=== PATIENT | female | born 1965 | race Caucasian/White ===

== ENCOUNTER 2017-08-19 18:11 | Emergency (ER) | payer OTHER ==
[2017-08-19 18:23] VITALS: BP 155/85
--- NOTE | 2017-08-19 19:05 | UC ---
Vladimir Winters Jennifer, scribed for Rashid Fragoso MD on 08/19/17 at 1838 . Abdominal Pain Female HPI - HPI Summary HPI Summary: The pt is a 51 y/o female who complains of diffuse abdominal pain that began at 12:30 this morning that has worsened throughout the day. She described the pain is located below the umbilicus and feels like contractions and when she had a ruptured hernia. Pt reports when she doesnt move, the pain is rated a 6/10, but movement worsens the pain to a 10/10. She also reports that since she had her hernia surgeries, shes had an outie belly button, but today its an innie. Pt additionally complains of no appetite, dry mouth, bloating, no pooping since her abdominal pain began, and that her rib cage to her hip bone feels sore. Pt denies nausea, vomiting, passing gas more than normal, and dysuria. - History of Current Complaint Chief Complaint: UCGI Stated Complaint: abdominal pain Time Seen by Provider: 08/19/17 18:29 Hx Obtained From: Patient Hx Last Menstrual Period: feb 12 Onset/Duration: Sudden Onset, Lasting Hours - about 6 hours ago, Still Present, Worse Since - throughout the day has worsened Timing: Constant Severity Initially: Moderate Severity Currently: Moderate Pain Intensity: 6 Pain Scale Used: 0-10 Numeric Location: Diffuse Radiates: Yes Radiates to: Other - Rip cage to hip bone feels sore Character: Other - "feels like contractions" Aggravating Factor(s): Movement Alleviating Factor(s): Nothing Associated Signs and Symptoms: Positive: Other: - diffuse abdominal pain, rib cage to hip bone feels sore, no appetite, dry mouth, hasn't pooped since pain started, feeling bloated. NEG: nausea, vomiting, no abnormal amount of gas passed, dysuria. Allergies/Adverse Reactions: Allergies Allergy/AdvReac Type Severity Reaction Status Date / Time Penicillins Allergy Hives Verified 08/19/17 18:16 Codones Allergy Severe Hives Uncoded 10/02/16 09:18 Home Medications: Home Medications Amphetamine MIXED SALT TAB* [Adderall TAB*] 10 mg PO DAILY 08/19/17 [History Confirmed 08/19/17] PMH/Surg Hx/FS Hx/Imm Hx Previously Healthy: Yes - NEG: HTN, DM GI/ History: Other Other GI/ History: Hernia - Surgical History Surgical History: Yes Surgery Procedure, Year, and Place: HERNIA REPAIR. APPENDIX. GALLBLADDER. LUMPECTOMY RIGHT BREAST. EAR TUBES/TONSILS. COLPOSCOPY - Family History Known Family History: Positive: Hypertension - Mother, grandfather - Social History Alcohol Use: None Substance Use Type: None Smoking Status (MU): Heavy Every Day Tobacco Smoker Type: Cigarettes Amount Used/How Often: 1 PPD Have You Smoked in the Last Year: Yes - Immunization History Most Recent Influenza Vaccination: 2014 Most Recent Tetanus Shot: unknown Most Recent Pneumonia Vaccination: never Review of Systems Constitutional: Other - No appetite ENT: Other - Dry mouth Gastrointestinal: Negative - Nausea, vomiting, passing gas more than normal, Abdominal Pain, Other - Bloating, no pooping since abdominal pain began Genitourinary: Negative - Dysuria Musculoskeletal: Other: - "rib cage to hip bone feels sore" Is Patient Immunocompromised?: No All Other Systems Reviewed And Are Negative: Yes Physical Exam - Summary Physical Exam Summary: General: well-appearing, no pain distress Skin: warm, color reflects adequate perfusion, dry Head: normal Eyes: EOMI, SAMI ENT: normal Neck: supple, nontender Respiratory: CTA, breath sounds present Cardiovascular: RRR Abdomen: soft, nontender Bowel: present Musculoskeletal: normal, strength/ROM intact Neurological: normal, sensory/motor intact, A&O x3 Psychological: affect/mood appropriate Triage Information Reviewed: Yes Vital Signs: Initial Vital Signs Temp 97.4 F 08/19/17 18:16 Pulse 76 08/19/17 18:16 Resp 16 08/19/17 18:16 BP 155/85 08/19/17 18:16 Pulse Ox 100 08/19/17 18:16 Vital Signs Reviewed: Yes Abd Pain Female Course/Dx - Course Course Of Treatment: Medications reviewed. Allergies noted. BP noted and advised to follow up with PCP. C/O BOWEL OBSTRUCTION. NEED TIMELY LABS AND CT WITH PO AND IV CONTRAST WHICH CANNOT BE DONE HERE IN CLINIC. THIS AND THE NEED FOR ED EVAL WAS DISCUSSED WITH THE PATIENT. SHE DECLINED AMBULANCE TRANSPORT TO ED. WILL GO BY POV. PATIENT DISCUSSED WITH NURSING IN THE ED. - Differential Dx/Diagnosis Provider Diagnoses: ABDOMINAL PAIN. elevated BP without dx of HTN Discharge - Discharge Plan Condition: Stable Disposition: HOME Patient Education Materials: Acute Abdominal Pain (ED) Referrals: Brice Limon MD [Primary Care Provider] - Additional Instructions: Your blood pressure was elevated during todays visit; please follow up with your primary care provider within a week for further evaluation. The documentation as recorded by the [facility] Jennifer accurately reflects the service I personally performed and the decisions made by me, Rashid Fragoso MD.
== END 2017-08-19 18:47 | disposition home or self-care (01) ==
LOC: UCEAST 18:11
DX: R10.84 Generalized abdominal pain (principal); R03.0 Elevated blood-pressure reading, without diagnosis of hypertension; Z90.49 Acquired absence of other specified parts of digestive tract; Z88.0 Allergy status to penicillin; Z88.8 Allergy status to other drugs, medicaments and biological substances; F17.210 Nicotine dependence, cigarettes, uncomplicated
CPT/HCPCS: 99212; G0463

== ENCOUNTER 2017-08-19 19:23 | Emergency (ER) | payer OTHER ==
[2017-08-19] MEDS ORDERED: NS 0.9% 1000 ML* 1,000 ML IV ONE (19:58)
[2017-08-19 20:26] LABS: Urine Appearance Clear; Urine Blood Negative (Negative); Urine Color Yellow; Urine Ketones Trace (Negative); Urine Protein Negative (Negative); Urine Specific Gravity 1.021 (1.010-1.030); Urine Urobilinogen Negative (Negative)
[2017-08-19 20:37] LABS: Hematocrit 42 % (35-47); Hemoglobin 14.3 g/dl (12.0-16.0); Mean Corpuscular HGB Conc 34 g/dl (31-36); Mean Corpuscular Hemoglobin 31 pg (27-31); Mean Corpuscular Volume 93 fL (80-97); Mean Platelet Volume 8 um3 (7.4-10.4); Platelet Count 406 10^3/ul (150-450); Red Blood Count 4.58 10^6/ul (4.0-5.4); Red Cell Distribution Width 15 % (10.5-15); White Blood Count 10.7 10^3/ul (3.5-10.8)
[2017-08-19 20:55] LABS: EGFR Non-African American 107.9 (>60)
[2017-08-19 21:05] LABS: ABS Basophils 0.1 10^3/ul (0-0.2); ABS Eosinophils 0.1 10^3/ul (0-0.6); ABS Lymphocytes 5.9 10^3/ul (1.0-4.8); ABS Monocytes 0.8 10^3/ul (0-0.8); ABS Neutrophils 3.9 10^3/ul (1.5-7.7)
[2017-08-19 21:07] LABS: Monocytes % 5 % (0-7)
[2017-08-19] MEDS ORDERED: Morphine INJ* 4 MG/ML 1 ML SYRINGE (NEW SYRINGE VERSION) IV ONE (21:47)
[2017-08-20] MEDS ORDERED: Iohexol 300* (CONTRAST) 10 ML SDV IV ONE (00:01)
[2017-08-20] MEDS ORDERED: Morphine INJ* 4 MG/ML 1 ML SYRINGE (NEW SYRINGE VERSION) IV ONE (01:07)
[2017-08-20] MEDS ORDERED: Bisacodyl SUPP* 10 MG SUPP PR ONE (03:09)
[2017-08-20] MEDS ORDERED: Magnesium CITRATE* 300 ML BTL PO ONE (03:09)
[2017-08-20 03:46] VITALS: BP 113/73
--- NOTE | 2017-08-20 04:41 | ED ---
Loli Winters Nilda, scribed for Case Vanegas MD on 08/19/17 at 2218 . Progress - Progress Note Progress Note: This pt was s/o by Dr. Jacques, pending dispo, awaiting CT Abd/Pel. CT Abd/Pel, per radiologist, reveals: 1 cm indeterminate hypodensity posterior mid/upper left kidney and 1.5 cm indeterminate hypodensity lower pole right kidney, correlate with ultrasound. Additional small cystic foci bilateral kidneys and small nonobstructing stone on right. 3.2 cm and 3.0 cm left adrenal nodules and 1.7 cm and 1.3 cm right adrenal nodules, indeterminate. These could be further evaluated with adrenal protocol CT. Small segment of tansverse colon projecting into 6.9 cm umbilical hernia, which also contains small free fluid, advise follow up. Moderate feces in right colon to level of hernia, and moderate air and minimal feces in left colon. Colon diameter remains normal caliber. No bowel obstruction, colitis, free fluid or free air. Appendix not seen. Pericecal surgical changes. Unremarkable pancreas. Cholecystectomy. Steatosis liver. Small epigastric ventral hernia containing fat. Dr. Vanegas has reviewed this report. [0302] Pt was evaluated by surgeon Dr. Limon who was able to reduce umbilical hernia. Pt felt better. Dr. Limon recommended D/C pt home and advising her to call office for appointment with him tomorrow. Pt will be D/C with Dx of umbilical hernia and constipation. Re-Evaluation - Re-Evaluation First Eval Re-Evaluation Time: 01:53 Comment: Reviewed CT with pt. Second Eval Re-Evaluation Time: 03:36 Comment: Pt feels better. Reviewed D/C plan. Course/Dx - Course Course Of Treatment: This pt was s/o by Dr. Jacques, pending dispo, awaiting CT Abd/Pel. CT Abd/Pel, per radiologist, reveals: 1 cm indeterminate hypodensity posterior mid/upper left kidney and 1.5 cm indeterminate hypodensity lower pole right kidney, correlate with ultrasound. Additional small cystic foci bilateral kidneys and small nonobstructing stone on right. 3.2 cm and 3.0 cm left adrenal nodules and 1.7 cm and 1.3 cm right adrenal nodules, indeterminate. These could be further evaluated with adrenal protocol CT. Small segment of tansverse colon projecting into 6.9 cm umbilical hernia, which also contains small free fluid, advise follow up. Moderate feces in right colon to level of hernia, and moderate air and minimal feces in left colon. Colon diameter remains normal caliber. No bowel obstruction, colitis, free fluid or free air. Appendix not seen. Pericecal surgical changes. Unremarkable pancreas. Cholecystectomy. Steatosis liver. Small epigastric ventral hernia containing fat. Dr. Vanegas has reviewed this report. [0302] Pt was evaluated by surgeon Dr. Limon who was able to reduce umbilical hernia. Pt felt better. Dr. Limon recommended D/C pt home and advising her to call office for appointment with him tomorrow. Pt will be D/C with Dx of umbilical hernia and constipation. - Diagnoses Provider Diagnoses: Umbilical hernia, Constipation - Provider Notifications Discussed Care Of Patient With: Avinash Limon - Surgery Time Discussed With Above Provider: 02:00 Instructed by Provider To: Other - agrees to look at pt's CT and will call back to discuss findings. The documentation as recorded by the [facility] Nilda accurately reflects the service I personally performed and the decisions made by , Case Vanegas MD.
--- NOTE | 2017-08-20 05:39 | CONS ---
CC: Dr. Avinash Limon; Dr. Limon CONSULTATION REPORT: DATE OF CONSULT: 08/20/17 CHIEF COMPLAINT: Abdominal pain. HISTORY OF PRESENT ILLNESS: The patient is a 51-year-old female, who comes in with approximately 8 h ours of abdominal pain. She has not been having any nausea, no vomiting, no fever, no chills, no tan rrhea, or change in urine or stool, no blood with urine or stool, no accident, injury or trauma. She has a history of a repair of incarcerated umbilical hernia done in 2016. Few weeks later, she did h ave an acute appendicitis that required going back through the umbilicus. She has also had a laparos copic cholecystectomy in the remote past. PHYSICAL EXAM: Vital signs at this time, temp 99, blood pressure 148/99, pulse 96 and regular, respi rations 17 and unlabored, O2 saturations 98%. She is 5 feet 9 inches, 230 pounds, BMI of 34. She do es not appear acutely ill. She appears uncomfortable. Skin is warm and well perfused. She is not d iaphoretic. Breathing is easy and unlabored. Heart is regular. Abdomen is obese and soft and mild diffuse tenderness. There is increased tenderness in the periumbilical region. There is a palpable u mbilical hernia. With pressure, I am ultimately able to get this reduced and I can get my finger pilo n into the fascial defect, which feels like it is maybe 2 cm across, there by confirming that the her harvey is reduced. I did reevaluate her after about 20 minutes and her abdominal pain was substantially improved and the hernia remained reduced. DIAGNOSTIC STUDIES/LAB DATA: Laboratory studies on this admission, normal white blood count, no left shift. Chemistries are normal. Urine normal. CT scan shows umbilical hernia with bowel contents. IMPRESSION: A 51-year-old female, who presented with an incarcerated umbilical hernia that has now b een reduced. I have discussed this with her in detail and she understands the need to have this repa ired in the near future and she does not require emergent repair. [facility] and will need to follow up in our office in the next couple of days and we will arrange s buster- urgent repair for recurrent umbilical hernia. She does understand that we will probably need to use mesh in this case. [id number]/[facility] #: [id number]
--- NOTE | 2017-08-20 07:59 | RAD ---
CLINICAL HISTORY: Lower abdominal pain. Relevant surgical history includes hernia repair, appendectomy and cholecystectomy. COMPARISON: Most recent comparison CT examination is dated January 06, 2016 and MRI of the abdomen October 07, 2016 TECHNIQUE: Contrast enhanced CT examination of the abdomen and pelvis from the lung bases through the initial tuberosities. The patient received 139 mL Omnipaque 300 intravenously prior to imaging.The patient received oral contrast as well prior to imaging. FINDINGS: VISUALIZED LUNG BASES: The visualized lung bases are grossly clear. There is no pleural effusion. ABDOMEN AND PELVIS: The liver is homogenously hypodense relative to the spleen. There are no focal liver masses or definite service irregularity. Depicted best on the coronal plane images is a 1.9 cm wedge-shaped hypoattenuating focus along the superior margin of the spleen (coronal image 86). This was not seen on the previous CT examination. The spleen is otherwise normal in appearance. The pancreas is normal in appearance. Low-density structures of the bilateral adrenal glands are unchanged from the prior CT examination. The gallbladder is surgically absent with clips in the gallbladder fossa.. There are bilateral low-attenuation focus in the kidney with a Hounsfield unit greater than that of simple cysts. These are unchanged from the prior CT examination. Otherwise the kidneys are normal in appearance without focal definite solid mass, calcification or signs of hydronephrosis. Neural contrast has progressed as far as the distal small bowel which limits evaluation of the terminal ileum and colon. The small and large bowel are not distended. Consistent with the patient's reported surgical history, the appendix is not seen and there are surgical material at the base of the cecum. There is an umbilical hernia containing a portion of transverse bowel. There is mild infiltration of the surrounding fat. The proximal loop of colon is not pathologically dilated and there is gas and stool seen in the more distal colon. There is no gross retroperitoneal or mesenteric lymphadenopathy. The pelvic viscera is normal in appearance. The abdominal aorta and iliac arteries are normal in course and diameter. Degenerative changes include multilevel loss of intervertebral disc height involving the lower thoracic and lumbar spine.There are no sinister bone lesions. IMPRESSION: 1. New since the prior CT examination is a herniated portion of transverse colon in the umbilical hernia. There is mild infiltration of the surrounding herniated peritoneal fat but no definite signs of obstruction. 2. Bilateral adrenal gland masses similar in appearance to the previous CT examination as well as the previous MRI. Imaging characteristics on MRI were consistent with adenomas. 3. Focal structures in the bilateral kidneys with attenuation greater than that of simple cyst. On the prior MRI these were determined to be either simple cysts or hemorrhagic cyst. There is no suspicious enhancement seen on the prior MRI as there is not on this examination either. 4. Possible interval appearance of wedge-shaped infarct in the superior margin of the spleen. Please correlate to any potential hypercoagulability. 5. Additional chronic, degenerative and iatrogenic findings described in the body the report.
== END 2017-08-20 03:43 ==
LOC: ED 19:23
DX: K42.9 Umbilical hernia without obstruction or gangrene (principal); K59.00 Constipation, unspecified
CPT/HCPCS: 36415; 74177; 80053; 81003; 83690; 85025; 85060; 87040; 87502; 99283; A9270-GY; J2270; Q9967

== ENCOUNTER 2017-08-26 10:42 | Day surgery (SDC) | payer OTHER ==
--- NOTE | 2017-08-23 22:02 | HP ---
CC: Dr. Brice Limon * PREOPERATIVE HISTORY AND PHYSICAL: DATE OF ADMISSION: 08/26/17 This patient is scheduled for same-day surgery admission by Dr. Limon on , 08/26/17. DATE OF PREOPERATIVE HISTORY AND PHYSICAL EXAMINATION: 08/23/17. ATTENDING SURGEON: Dr. Avinash Limon * (dictated by Brigitte Richardson NP). CHIEF COMPLAINT: Umbilical hernia. HISTORY OF PRESENT ILLNESS: The patient is a 51-year-old female, who was evaluated by Dr. Limon at the [facility] Emergency Room on . She complained of approximately 8 hours of abdominal pain; she did not have any nausea, vomiting, fever, chills, or change in urine or stool. She did not have any injury or trauma to her abdomen. She has a history of a primary repair of an incarcerated umbilical hernia, 12/15/15, by Dr. Sanderson and then a few weeks later, she had acute appendicitis and underwent laparoscopic appendectomy on 01/07/16 that required going back through the umbilicus. She also had a laparoscopic cholecystectomy in her 20s. Dr. Limon examined the patient and noted a palpable umbilical hernia and with pressure, he was ultimately able to reduce the umbilical hernia and the fascial defect was noted to be approximately [address] Limon recommended open umbilical hernia repair with mesh as a same-day surgery procedure and described the nature of the procedure, the rationale for the procedure, the relevant risks and benefits , and today I reviewed all of the typical postoperative care and recovery. The patient has had a chance to ask questions and stated that she understands the information and is satisfied with the answers given to her questions. She will sign surgical consent on the day of surgery. PAST MEDICAL HISTORY: Asthma, adrenal lesions, migraine headaches, and obesity. PAST SURGICAL HISTORY: Open primary repair of incarcerated umbilical hernia, ; laparoscopic appendectomy, 01/07/16; laparoscopic cholecystectomy in her 20s; right breast excision for benign lesion, 2001; tonsillectomy and ear tubes remotely. OB HISTORY: 2, para 2. Her menstrual periods are irregular. She is up to date with breast exam and mammogram and is not sure when her last pelvic and Pap smear were done. MEDICATIONS: 1. Adderall XR 10 mg p.o. daily. 2. Advair 2 puffs b.i.d. 3. Ventolin 2 puffs four times a day p.r.n. 4. Ipratropium/albuterol nebulizer as needed during asthma flare-up. ALLERGIES: PENICILLIN causes hives; HYDROCODONE causes itchiness and vomiting. FAMILY HISTORY: Mother is alive with a history of brain cancer. Many maternal relatives have had heart disease. She reports that her maternal grandmother was "allergic" to anesthesia and many other medications. No known clotting disorders or bleeding tendencies in the family. SOCIAL HISTORY: She is ; she has 8 children, 2 biologic, 4 adopted, and 2 that are living with the family as friends of the family. She smokes 1 pack of cigarettes per day. She does not drink alcohol or use other substances. REVIEW OF SYSTEMS: Constitutional: No fevers, chills, excessive fatigue, or weight loss. Endocrine: No diabetes or thyroid disease. Hematologic: No easy bruising or bleeding. No previous blood transfusions. Respiratory: She states that she was diagnosed with pneumonia in July of 2017, but did not have a chest x-ray but was treated with Zithromax; a CAT scan of her abdomen and pelvis that was done 08/19/17 revealed that both lung munguia were clear; she does not have dyspnea on exertion or chronic cough. Cardiovascular: No anginal chest pain or palpitations. Gastrointestinal: No nausea, vomiting, diarrhea, or constipation. No change in bowel habits. Genitourinary: No dysuria. Musculoskeletal: No back or joint pain. Neurologic: History of migraine headaches, none currently. No blurred vision. No areas of focal weakness. General: No previous anesthesia complications. No history of deep vein thrombosis or pulmonary embolism. PHYSICAL EXAMINATION GENERAL SURVEY: The patient is a 51-year-old female, obese, well-developed, in no acute distress. VITAL SIGNS: Height 68 inches, weight 230 pounds, body mass index 35. Blood pressure 130/80, pulse 72 and regular, respiratory rate 18, temperature 98.3 tympanic. HEENT: Benign. NECK: Supple. No cervical lymphadenopathy. BACK: No CVA tenderness. LUNGS: Breath sounds bilaterally clear and equal. HEART: Regular rate and rhythm. No murmurs or rubs appreciated. ABDOMEN: Active bowel sounds, obese, soft. Mildly tender in the periumbilical region. No guarding. There is a palpable umbilical hernia, which reduced with the patient supine and there was approximately 2 cm fascial defect. No other obvious masses or organomegaly, but exam is limited by body habitus. EXTREMITIES: Warm without edema or skin ulcerations. PELVIC: Deferred. RECTAL: Deferred. NEUROLOGIC: Alert and oriented x3. Steady gait. SKIN: Warm, dry, intact. DIAGNOSTIC STUDIES/LAB DATA: That were done, 08/19/17, revealed a CAT scan that showed an umbilical hernia with bowel contents. All of the laboratory studies including white blood count, chemistries, and urine were all within normal limits. IMPRESSION: Incarcerated umbilical hernia, reduced 08/20/17; this is a recurrent umbilical hernia. PLAN: Same-day surgery admission to Dr. Limon's service on , 08/26/17 , for open repair of recurrent umbilical hernia with mesh. SAM RICHARDSON, FLAME ANNEALING MACHINE OPERATOR [id number]/[facility] #: [id number] [facility] CENTERCynthia
[~2017-08-26 10:42] MED LIST: Buffered Lidocaine 0.9% SYRIN* 5 ML/SYR SYRINGE INTRADERM ONE
[2017-08-26] MEDS ORDERED: Clindamycin 900 MG IVPREMIX(* 900 MG/50 ML SDV IV ONE (10:56)
[2017-08-26] MEDS ORDERED: Buffered Lidocaine 0.9% SYRIN* 5 ML/SYR SYRINGE ONE (10:56)
[2017-08-26] MEDS ORDERED: fentaNYL* 50 MCG/ML 2 ML VIAL (100 MCG VIAL) ONE ×3 (11:42→16:17)
[2017-08-26] MEDS ORDERED: Midazolam* 1 MG/ML 5 ML VIAL (5 MG) ONE (11:43)
[2017-08-26] MEDS ORDERED: Bupivacaine 0.25% SDV* 30 ML ONE (12:34)
[2017-08-26] MEDS ORDERED: Lidocaine 1% MPF wEPI 200,000* 30 ML SDV ONE (12:34)
[2017-08-26] MEDS ORDERED: Propofol* 10 MG/ML 20 ML BTL IV PUSH ONE ×4 (13:06→14:00)
[2017-08-26] MEDS ORDERED: Ketorolac INJ* 30 MG/ML 1 ML VIAL ONE (13:19)
[2017-08-26] MEDS ORDERED: Midazolam* 1 MG/ML 2 ML VIAL (2 MG) ONE (13:52)
[2017-08-26] MEDS ORDERED: Scopolamine 1.5 mg* PATCH ONE (13:59)
[2017-08-26] MEDS ORDERED: Naloxone* 0.4 MG/ML 1 ML VIAL IV PRN (15:26)
[2017-08-26] MEDS ORDERED: PROCHLORPERAZINE INJ 5 MG/ML 2 ML VIAL IV PRN (15:26)
[2017-08-26] MEDS ORDERED: Metoclopramide IV* 5 MG/ML 2 ML VIAL IV PRN (15:26)
[2017-08-26] MEDS ORDERED: oxyCODONE/Acetamin 5/325 MG* TAB PO PRN (15:31)
[2017-08-26] MEDS ORDERED: Acetaminophen IV 1GM/100ML * 1,000 MG/100 ML VIAL IVPB ONE (15:31)
[2017-08-26] MEDS ORDERED: Acetaminophen IV 1GM/100ML * 100 ML ONE (15:38)
--- NOTE | 2017-08-26 15:47 | PN ---
Progress Note - Progress Note Date of Service: 08/26/17 Note: Preop Dx: Umbilical Hernia Postop Dx: same Procedure: open repair umbilical hernia w/ mesh Anesthesia: GET (LMA) Surgeon: Ashly Asst: BLAKE Squires Fluids: EBL: <100 ml Drains: none Specimen: none Findings: dictated
[2017-08-26] MEDS ORDERED: oxyCODONE TAB* 5 MG TAB PO PRN (15:48)
[2017-08-26] MEDS ORDERED: oxyCODONE TAB* 5 MG TAB ONE (16:42)
[2017-08-26 18:12] VITALS: BP 136/75
--- NOTE | 2017-08-27 13:39 | OP ---
CC: Avinash Limon MD; Brice Limon MD OPERATIVE REPORT: DATE OF OPERATION: 08/26/17 DATE OF : 67 SURGEON: Avinash Limon MD SENIOR [employer]IVING SALES COUNSELOR: ORVILLE Squires ANESTHESIOLOGIST: Dr. Gilbert. ANESTHESIA: General anesthetic, local infiltration. PRE-OP DIAGNOSIS: Recurrent ventral umbilical hernia. POST-OP DIAGNOSIS: Recurrent ventral umbilical hernia. OPERATIVE PROCEDURE: Open repair of ventral umbilical hernia with mesh. DESCRIPTION OF PROCEDURE: The patient was supine in the operating room table. After adequate general anesthetic, compression stockings, Bismark Hugger warmer, and intravenous antibiotics the abdomen was p repped with antiseptic and draped in a sterile fashion. Infraumbilical curvilinear incision was crea louisa at the site of the previous incision. This was ultimately enlarged once the size of the hernia w as truly appreciated. Dissection was carried down and the hernia sac improved to be approximately 8 cm across, although the defect was only about 3 to 4 cm across. Attempt was made to keep in the extra peritoneal plane; however, there were too many adhesions from previous surgery and there were multipl e tears in the peritoneum, thereby necessitating an intraperitoneal underlay patch to be placed. A 5 x 7 inch ventral underlay patch was placed with the adhesive barrier towards the inside. It was par achuted in with 3 interrupted sutures above and below of #1 Vicryl. The patch was oriented transvers hina. After this was done, the patch was parachuted under and the patch was tacked back up underneath the musculature using the laparoscopic tacker. This created good adherence of the mesh and the fasc ia was closed over top in a transverse fashion using running 0 Vicryl. The adipose was reapproximate d and the umbilical skin was tacked back down using 3-0 Vicryl and the skin closed with surgical stap les followed by a sterile dressing. She tolerated the procedure well, was awakened and brought to Re covery in good condition. There were no complications. No drains. No pathologic specimens. Sponge and instrument counts correct. Estimated blood loss less than 100 mL. [id number]/[facility] #: [id number]
[2017-08-29] MEDS ORDERED: Scopolamine PATCH Remove* 1 NOTE MISC PATCH OFF ONE (15:27)
== END 2017-08-26 18:30 | disposition home or self-care (01) ==
LOC: OR 10:42
PROVIDERS: ATTEND Surgery
DX: K43.2 Incisional hernia without obstruction or gangrene (principal); J45.909 Unspecified asthma, uncomplicated; E66.9 Obesity, unspecified; Z88.0 Allergy status to penicillin; Z88.8 Allergy status to other drugs, medicaments and biological substances; Z87.891 Personal history of nicotine dependence; F98.8 Other specified behavioral and emotional disorders with onset usually occurring in childhood and adolescence
CPT/HCPCS: 81025; A9270-GY; J1885; J2001; J2250; J2704; J3010

== ENCOUNTER 2017-10-07 13:23 | Day surgery (SDC) | payer OTHER ==
[~2017-10-07 13:23] MED LIST changes: +Famotidine TAB* 20 MG PO ONE; +Levalbuterol 0.63MG/3ML NEB* UNIT OF USE INH ONE; +Metoclopramide TAB* 10 MG PO ONE; +Scopolamine 1.5 mg* PATCH TRANSDERM ONE
[2017-10-07] MEDS ORDERED: Famotidine TAB* 20 MG ONE (13:40)
[2017-10-07] MEDS ORDERED: Scopolamine 1.5 mg* PATCH ONE (13:41)
[2017-10-07] MEDS ORDERED: Clindamycin 900 MG IVPREMIX(* 900 MG/50 ML SDV IV ONE (13:41)
[2017-10-07] MEDS ORDERED: Ketorolac INJ* 30 MG/ML 1 ML VIAL ONE (13:41)
[2017-10-07] MEDS ORDERED: Metoclopramide TAB* 10 MG ONE (13:41)
[2017-10-07] MEDS ORDERED: Levalbuterol 0.63MG/3ML NEB* UNIT OF USE INH ONE (13:44)
[2017-10-07] MEDS ORDERED: Lidocaine 2% PF * 5 ML VIAL ONE (14:04)
[2017-10-07] MEDS ORDERED: Ondansetron INJ* 2 MG/ML VIAL ONE (14:04)
[2017-10-07] MEDS ORDERED: fentaNYL* 50 MCG/ML 2 ML VIAL (100 MCG VIAL) ONE ×3 (14:04→16:55)
[2017-10-07] MEDS ORDERED: Propofol* 10 MG/ML 20 ML BTL IV PUSH ONE (14:04)
[2017-10-07] MEDS ORDERED: Dexamethasone IV* 4 MG/ML 1 ML (4 MG) ONE (14:04)
[2017-10-07] MEDS ORDERED: Midazolam* 1 MG/ML 5 ML VIAL (5 MG) ONE (14:05)
[2017-10-07] MEDS ORDERED: Mivacurium Chloride* 20 MG/10 ML VIAL IV ONE (14:05)
[2017-10-07] MEDS ORDERED: Bupivacaine 0.5% PF 10 ML VIAL INJ ONE (14:21)
[2017-10-07] MEDS ORDERED: Lidocain 1% EPI 1:100,000 * 30 ML MDV ONE (14:21)
[2017-10-07] MEDS ORDERED: Sodium Citrate/Citric Acid* 15 ML UDC ONE (15:58)
[2017-10-07] MEDS ORDERED: Ondansetron INJ* 2 MG/ML VIAL IV PRN (16:00)
[2017-10-07] MEDS ORDERED: Naloxone* 0.4 MG/ML 1 ML VIAL IV PRN (16:00)
[2017-10-07] MEDS ORDERED: fentaNYL* 50 MCG/ML 2 ML VIAL (100 MCG VIAL) IV PRN (16:00)
[2017-10-07] MEDS ORDERED: Midazolam* 1 MG/ML 2 ML VIAL (2 MG) ONE (16:05)
[2017-10-07 17:01] VITALS: BP 117/72
--- NOTE | 2017-10-07 22:29 | OP ---
CC: Avinash Limon MD OPERATIVE REPORT: DATE OF OPERATION: 10/07/17 DATE OF : 67 SURGEON: Avinash Limon MD CUSTOMER SUCCESS INTERN: ORVILLE Squires ANESTHESIOLOGIST: Dr. Mora. ANESTHESIA: General anesthetic, local infiltration. PRE-OP DIAGNOSIS: Chronic seroma of umbilical hernia repair. POST-OP DIAGNOSIS: Chronic seroma of umbilical hernia repair. OPERATIVE PROCEDURE: Evacuation of seroma of umbilical area. COMPLICATIONS: There were no complications. DRAINS: No drains. SPECIMEN: No pathologic specimens. COUNTS: Sponge and instrument counts correct. ESTIMATED BLOOD LOSS: Less than 20 mL. DESCRIPTION OF PROCEDURE: The patient was supine on the operating table. After adequate general ane sthetic, compression stockings, Bismark Hugger warmer, and intravenous antibiotics, the abdomen was prep ped with antiseptic and draped in a sterile fashion. Local infiltrative anesthesia was administered. The central portion of the previous infraumbilical incision was entered. Over approximately 5 cm d issection was carried down and a cavity was identified and there was serous fluid forthcoming. There was about 1 cm hole in the fascia with exposed mesh. There was a little bit of granulation tissue, w hich was debrided out of here. I opened up a little bit of the fascia distal to this to drain a bobby le more seroma. There did not seem to be any additional seroma pockets that I could identify. The ar ea was irrigated and packing gauze was placed followed by a bulky gauze dressing. She tolerated the p rocedure well, was brought to Recovery in good condition. [id number]/[facility] #: [id number]
[2017-10-10] MEDS ORDERED: Scopolamine PATCH Remove* 1 NOTE MISC PATCH OFF ONE (06:00)
== END 2017-10-07 17:19 | disposition home or self-care (01) ==
LOC: OR 13:23
PROVIDERS: ATTEND Surgery
DX: L76.34 Postprocedural seroma of skin and subcutaneous tissue following other procedure (principal); F17.210 Nicotine dependence, cigarettes, uncomplicated; J45.909 Unspecified asthma, uncomplicated; E66.9 Obesity, unspecified
CPT/HCPCS: 81025; 93005; A9270-GY; J1100; J1885; J2250; J2405; J2704; J3010

== ENCOUNTER 2018-07-28 08:30 | Day surgery (SDC) | payer OTHER ==
[~2018-07-28 08:30] MED LIST changes: -Buffered Lidocaine 0.9% SYRIN* 5 ML/SYR SYRINGE INTRADERM ONE; +Buffered Lidocaine 1% SYRIN* 1 ML/SYRINGE INTRADERM ONE; +Clindamycin 900 MG/D5W BAG(*) 900 MG/50 ML BAG IVPB ONE; +Dexamethasone IV* 4 MG/ML 1 ML (4 MG) IV SLOW PU ONE; +Dexamethasone IV* 4 MG/ML 1 ML (4 MG) ONE; +DiMENhydriNATE IV* 50 MG/ML VIAL IV PUSH PRN; +Famotidine IV* 10 MG/ML 2 ML (20 mg) IV ONE; +Famotidine IV* 10 MG/ML 2 ML (20 mg) ONE; -Famotidine TAB* 20 MG PO ONE; +Lactated Ringers 1000 ML Bag* 1,000 ML IV SCH; -Metoclopramide TAB* 10 MG PO ONE; +Morphine VIAL* 4 MG/ML VIAL (1 ml vial) IV PRN; +Naloxone* 0.4 MG/ML 1 ML VIAL IV PRN; +Ondansetron ODT TAB* 4 MG ONE; +Ondansetron TAB* 4 MG PO ONE; +PROCHLORPERAZINE INJ 5 MG/ML 2 ML VIAL IV PRN; +Scopolamine 1.5 mg* PATCH ONE; +fentaNYL* 50 MCG/ML 2 ML VIAL (100 MCG VIAL) IV PRN; +oxyCODONE/Acetamin 5/325 MG* TAB PO PRN
[2018-07-28] MEDS ORDERED: Midazolam* 1 MG/ML 5 ML VIAL (5 MG) ONE (09:30)
[2018-07-28] MEDS ORDERED: fentaNYL* 50 MCG/ML 2 ML VIAL (100 MCG VIAL) ONE (09:30)
[2018-07-28] MEDS ORDERED: Morphine INJ* 10 MG/ML 1 ML CARPUJECT ONE (09:58)
[2018-07-28] MEDS ORDERED: ROPIVACAINE 5 MG/ML 30 ML BTL (0.5%) ONE (09:58)
[2018-07-28 13:21] VITALS: BP 124/76
[2018-07-28] MEDS ORDERED: HYDROcodone/ACETAMIN 5-325 MG* 1 TAB ONE (13:34)
--- NOTE | 2018-07-28 14:13 | OP ---
DATE OF OPERATION: 07/28/18 - [facility] DATE OF : 67 SURGEON: Klever Peterson MD LOCOMOTIVE INSPECTOR: ORVILLE Smith ANESTHESIOLOGIST: Dr. Sandoval. ANESTHESIA: General. PRE-OP DIAGNOSES: 1. Right thumb stage III carpometacarpal arthritis. 2. Right carpal tunnel syndrome. POST-OP DIAGNOSES: 1. Right thumb stage III carpometacarpal arthritis. 2. Right carpal tunnel syndrome. OPERATIVE PROCEDURE: 1. Right thumb carpometacarpal arthroplasty with trapeziectomy. 2. Right thumb suspension with distally based flexor carpi radialis tendon transfer for thumb suspension and tendon interposition. 3. Right endoscopic carpal tunnel release. INDICATIONS: Andreea has had severe disabling right thumb base pain. Additionally, she has had progressive numbness and tingling in radial 3-1/2 digits and that has been progressive for the last few years. We had discussed her treatment options. She had tried nonoperative treatments including physical therapy and Voltaren gel and braces and all of these had failed to relieve her symptoms and so we had talked about surgery. She had wanted to proceed. She understands the risk of a nerve injury, risk of persistent pain, and need for revision surgery, risk of infection. She would like to proceed. ESTIMATED BLOOD LOSS: 10 mL. COMPLICATIONS: None. FINDINGS: See above and below. DESCRIPTION OF PROCEDURE: Andreea was seen in the preoperative holding area. The correct site, side, and procedure were identified. We came back to the operating room where she was positioned supine with the use of the hand table. The arm was prepped and draped in the usual fashion and a time-out was performed. I exsanguinated the arm with the Esmarch and the tourniquet was inflated to 250 mmHg. I began by making a transverse incision over the ulnar aspect of the wrist about a centimeter proximal to the wrist flexion crease. The fascia was opened transversally with the tenotomy scissors by bluntly spreading. I then placed a skin hook underneath the fascia and used the synovial stripper followed by the dilators and then ultimately I placed the micro air endoscopic carpal tunnel system into the carpal tunnel stain immediately adjacent to the hook of the hamate. There was no intervening fatty tissue. I had an excellent view of the transverse carpal ligament and so I went ahead and released the transverse carpal ligament in standard fashion by releasing the distal two- thirds first and confirming the release and I released the remainder of the proximal transverse carpal ligament last. I placed the blunt end with Jorge retractor and confirmed the decompression. I then dissected out and released the remainder of the distal antebrachial fascial proximally. Things were looking good and so I irrigated out the wound and the skin was closed with 4-0 nylon suture. I then turned my attention to the thumb base. I made a 2 to 3 cm incision over the dorsal radial thumb base. The dissection was carried down longitudinally and bluntly to preserve the traversing radial sensory nerve. The radial artery was identified and mobilized and retracted out of the way with a Ragnell retractor. I then raised subperiosteal and capsular flaps anteriorly and posteriorly to expose the entirety of the trapezium. Once I cleaned up the margins of the trapezium, the rongeur was used to excise the trapezium in piecemeal fashion. Once it was all excised, I looked at the scaphotrapezoid joint and the articular cartilage there looked good. I then raised the soft tissue off of the base of the metacarpal dorsal radially, subperiosteally and then used sequentially larger drill bits to create a bone tunnel from dorsal radial to volar ulnar exiting out the volar ulnar aspect of the articular surface near the base of the second metacarpal. The wound was irrigated out and we turned our attention to harvesting the tendon. I made a transverse incision over the distal FCR tendon, I ended up just bringing this incision in continuity with my endoscopic carpal tunnel release incision. Care was taken not to go deep with the knife, so as not to be anywhere near the median nerve. The FCR tendon sheath was opened distally with the tenotomy scissors. The tendon was delivered up into the wound and then split longitudinally with a 15 blade. Then, a 26-gauge wire was passed into the tendon split. I came about 8 cm proximal to that incision and made a second 1 to 2 cm transverse incision over the FCR tendon at the musculotendinous junction. Dissection was carried down and I opened up the tendon sheath along the course of the tendon. I then used a Antionette clamp to retrieve the 26-gauge wire in the distal wound and pulled it proximally to split the tendon along its course and released half of it at the musculotendinous junction. The 26-gauge wire was then used to shuttle the suture down into the thumb base wound where the split was taken all the way to the metacarpal base. The free end of the tendon was then passed through the bone tunnel in the base of the metacarpal and looped back around the intact limb. Maximum tension was set as all 3 limbs of the tendon transfer was secured with 3-0 Ethibond suture. The first [id number] sutures sewed all 3 limbs of the tendon transfer together. The last 2 [id number] sutures sewed intact limb to intact limb. The remainder of the tendon tail was rolled up into a ball and secured with 2-0 Ethibond suture and then docked as an interposition proximal to the base of the metacarpal. The capsule was then closed with 3-0 Vicryl suture. I irrigated out all the wounds. The skin was closed with 4-0 nylon suture. Ropivacaine 0.5% was infiltrated all around the operative area. The wounds were dressed with Xeroform, 4x4s, sterile Webril, and then a thumb spica splint with the IP joint free was applied. She was then woken up and taken to the recovery room in stable condition. [id number]/[facility] #: [id number] ANAHI
[2018-07-31] MEDS ORDERED: Scopolamine PATCH Remove* 1 NOTE MISC PATCH OFF ONE (06:00)
== END 2018-07-28 13:48 | disposition home or self-care (01) ==
LOC: OREAST 08:30
PROVIDERS: ATTEND Orthopaedic Surgery Hand Surgery
DX: M18.11 Unilateral primary osteoarthritis of first carpometacarpal joint, right hand (principal); G56.01 Carpal tunnel syndrome, right upper limb; J44.9 Chronic obstructive pulmonary disease, unspecified; J45.909 Unspecified asthma, uncomplicated; K21.9 Gastro-esophageal reflux disease without esophagitis; D64.9 Anemia, unspecified; F17.210 Nicotine dependence, cigarettes, uncomplicated; Z85.3 Personal history of malignant neoplasm of breast; Z88.0 Allergy status to penicillin; Z88.5 Allergy status to narcotic agent
CPT/HCPCS: 88304; 88311; A9270-GY; J1100; J2250; J2270; J2795; J3010

== ENCOUNTER 2018-08-07 13:15 | Emergency (ER) | payer OTHER ==
--- OUTSIDE RECORDS SUMMARY | 2018-08-07 14:03 | XMS REPORT | Continuity of Care Document ---
:1965 External Reference #:[id number] Author Name Tatum Roque MD Address [address] [place] [id number] Care Team Providers Name Role Phone Brice Limon MD Care Team Information Tie Knitter Helper Unavailable Brice Limon MD Primary Care Physician Unavailable Payers Date Identification Numbers Payment Provider Subscriber Policy Number: [id number] [place] Luz Dangeloox PayID: [id number] [address] [address] [place] [address] Policy Number: [id number] / Reg 1 Clinton Dangeloox PayID: [id number] [address] [place] [address] Advance Directives Description No Information Available Problems Description No Information Family History Description No Information Available Social History Type Date Description Comments Sex Unknown Tobacco Use Start: Unknown Light tobacco smoker (10 or fewer cigarettes/day) Smoking Status Reviewed: 05/24/18 Light tobacco smoker (10 or fewer cigarettes/day) Allergies, Adverse Reactions, Alerts Date Description Reaction Status Severity Comments 02/20/2016 Hydromorphone vomiting Active 03/13/2014 Penicillin itching Active 03/13/2014 Codeine Active Medications Medication Date Status Form Strength Qnty SIG Indications Ordering Provider Omeprazole 07/25 Active Capsules 20mg 60cap take [address] ceballos capsule by Tony-Shereen booker MD daily. take 30-60 minutes before a meal. Colyte With Flavor 05/25 Active Solution 240gm 4000m by mouth Tatum Packs Rec l as Foor-Shereen booker MD Methylphenidate 04/20 Active Caps ER 20mg 30cap F90.0 Viv Limon Hydrochloride ER /2017 24HR s MD [facility] Advair HFA 02/02 Active Aerosol 115-21mcg 36uni 2 puff J45.998 Manoj, N /Act ts twice a icole,SUBSTATION MAINTENANCE TECHNICIAN day Hydrochlorothiazide 11/20 Active Tablets 12.5mg 90tab 1 by mouth M79.672 Manoj, s every icole,SUBSTATION MAINTENANCE TECHNICIAN morning as needed Hydrochlorothiazide 11/20 Active Tablets 12.5mg 90tab M79.672 Manoj, N s icole,SUBSTATION MAINTENANCE TECHNICIAN Ventolin HFA 09/15 Active Aerosol 108(90Bas 54uni inhale 2 J45.998 Manoj,N e) ts puffs icole,SUBSTATION MAINTENANCE TECHNICIAN mcg/Act every 4-6 hours as needed for asthma, shortness of breath, cough,or wheeze Ventolin HFA 09/15 Active Aerosol 108(90Bas 54uni J45.998 Manoj,N e) ts icole,SUBSTATION MAINTENANCE TECHNICIAN mcg/Act Ipratropium 08/31 Active Solution 0.5-2.5(3 270un use bid- J06.9 Manoj,N [place]/Albuterol /2014 )mg/3ML its three icole,SUBSTATION MAINTENANCE TECHNICIAN Sulfate times a day in nebulizer as needed Azithromycin 07/26 Hx Tablets 250mg 6tabs z pedro as J45.909 Manoj, directed, icole,SUBSTATION MAINTENANCE TECHNICIAN - 2 tabs day 05/24 one, tab day 2-5 Advair HFA 02/02 Hx Aerosol 115-21mcg 36uni J45.998 ManojN /Act ts icole,SUBSTATION MAINTENANCE TECHNICIAN - 05/24 Methylphenidate HCL 04/23 Hx Tablets 10mg 60tab 1 by mouth F90.0 Braxton , s once a day MD [facility] - or two 05/24 times day as directed Ipratropium 20 Hx Solution 0.5-2.5(3 270un J06.9 Manoj,N [place]/Albuterol )mg/3ML its icole,SUBSTATION MAINTENANCE TECHNICIAN Sulfate - 05/24 Zofran Odt Hx Tablets 4mg Unknown /0000 Dispers - 05/24 Ketorolac 00 Hx Tablets 10mg Unknown Tromethamine /0000 - 05/24 Immunizations Description No Information Available Vital Signs Date Vital Result Comment 05/24/2018 11:38am Height 69 inches 5'9" Weight 226.00 lb BP Systolic 127 mmHg BP Diastolic 82 mmHg Heart Rate 79 /min BMI (Body Mass Index) 33.4 kg/m2 Results Test Date Facility Test Result H/L Range Note Laboratory test 07/22/2018 [facility] Surgical SEE RESULT 1 finding Pathology BELOW Laboratory test 02/18/2018 N2N/CCD Import Pathologist (See Note) 2 finding Review CBC Auto Diff 02/18/2018 N2N/CCD Import Abs Basophils 0.1 10^3/uL 0-0.2 Abs Eosinophils 0.2 10^3/uL 0-0.6 Abs Lymphocytes 5.4 10^3/uL High 1.0-4.8 Abs Monocytes 0.9 10^3/uL High 0-0.8 Abs Neutrophils 4.7 10^3/uL 1.5-7.7 Abs Nucleated RBC 0 10^3/uL Basophil % 0.7 % 0-2 Eosinophil % 1.7 % 0-6 Granulocyte % 41.5 % 38-83 Hematocrit 41 % 35-47 Hemoglobin 14.4 g/dL 12.0-16.0 Lymphocyte % 47.9 % High 25-47 Mean Corpuscular HGB Conc 35 g/dL 31-36 Mean Corpuscular Hemoglobin 33 pg High 27-31 Mean Corpuscular Volume 96 fL 80-97 Mean Platelet Volume 8.1 um3 7.4-10.4 Monocyte % 8.2 % High 0-7 Nucleated Red Blood Cells % 0.1 1 Platelet Count 410 10^3/uL 150-450 Red Blood Count 4.32 10^6/uL 4.00-5.40 Red Cell Distribution Width 14 % 10.5-15 White Blood Count 11.3 10^3/uL High 3.5-10.8 CBC Manual Diff-Fma 09/27/2017 N2N/CCD Import Atypical Lymph 11 1 Band 1 Eosinophils 1 Hematocrit (Fma/CMC/CTX) 44 % 35.0-50.0 Hemoglobin (Fma/CMC/CTX) 14.7 g/dL 12.0-17.0 Lymphocytes 57 1 Mean Corpuscular Hemo Concen 33.5 g/dL 32.2-36.0 Mean Corpuscular Hemoglobin 31.3 pg 25.6-32.2 Mean Corpuscular Vol 93.6 fL 80-95 Mean Platelet Volume 10.2 fL 9.4-12.4 Monocyte 6 1 Neutrophil 24 1 Platelets 482 10^3/uL High 163-400 RBC 4.70 1 3.93-6.0 RDW 12.9 1 11.6-13.7 WBC 9.93 1 4.0-10.0 Z#Comment see result note Laboratory test finding 08/19/2017 N2N/CCD Import Abs Basophils 0.1 10^3/ uL 0-0.2 3 Abs Eosinophils 0.2 10^3/uL 0-0.6 Abs Lymphocytes 5.2 10^3/uL High 1.0-4.8 Abs Monocytes 0.5 10^3/uL 0-0.8 Abs Neutrophils 3.5 10^3/uL 1.5-7.7 Band % 1 % 0-8 Basophil % 1 % 0-2 Blood Culture See Result Below 4 Eosinophils % 2 % 0-6 Immature Granulocytes 1 % 0-9 Lipase 41 U/L 11.0-82.0 Lymphocytes % 49 % High 25-47 Monocytes % 5 % 0-7 Neutrophil % 33 % Low 38-83 Pathologist Review (See Note) 5 RBC Morphology Normal Normal Reactive Lymph % 9 % High 0-6 CBC Auto Diff 08/19/2017 N2N/CCD Import Abs Basophils 0.1 10^3/uL 0-0.2 Abs Eosinophils 0.1 10^3/uL 0-0.6 Abs Lymphocytes 5.9 10^3/uL High 1.0-4.8 Abs Monocytes 0.8 10^3/uL 0-0.8 Abs Neutrophils 3.9 10^3/uL 1.5-7.7 Hematocrit 42 % 35-47 Hemoglobin 14.3 g/dL 12.0-16.0 Mean Corpuscular HGB Conc 34 g/dL 31-36 Mean Corpuscular Hemoglobin 31 pg 27-31 Mean Corpuscular Volume 93 fL 80-97 Mean Platelet Volume 8 um3 7.4-10.4 Platelet Count 406 10^3/uL 150-450 Red Blood Count 4.58 10^6/uL 4.0-5.4 Red Cell Distribution Width 15 % 10.5-15 White Blood Count 10.7 10^3/uL 3.5-10.8 Comp Metabolic Panel 08/19/2017 N2N/CCD Import Albumin 4.3 g/dL 3.2-5.2 Albumin/Globulin Ratio 1.4 1 1-3 Alkaline Phosphatase 81 U/L 34-104 Alt 42 U/L 7-52 Anion Gap 6 mmol/L 2-11 Ast 23 U/L 13-39 BUN/Creatinine Ratio 20.3 1 High 8-20 Blood Urea Nitrogen 12 mg/dL 6-24 Calcium 9.8 mg/dL 8.6-10.3 Chloride 106 mmol/L 101-111 Co2 Carbon Dioxide 25 mmol/L 22-32 Creatinine 0.59 mg/dL 0.51-0.95 Egfr 138.8 1 >60 6 Egfr Non- 107.9 1 >60 Globulin 3.0 g/dL 2-4 Glucose 110 mg/dL High 70-100 Potassium 3.6 mmol/L 3.5-5.0 Sodium 137 mmol/L 133-145 Total Bilirubin 0.40 mg/dL 0.2-1.0 Total Protein 7.3 g/dL 6.4-8.9 1 SEE RESULT BELOW Name: LUZ GONZALEZ : [address]: Tatum Roque MD Acct: [id number] Unit: [id number] AGE: 52 Location: ENDO Re07/22/18 SEX: F Status: DEP REF SPEC: [id number] ANNE MARIE: [address]: Tatum Garay MD REQ: [id number] RECD: 07/22/18 STATUS: HERB PRINGLE DR: Brice Limon MD _ ORDERED: LEVEL 4/3 FINAL DIAGNOSIS 1. Proximal esophagus, biopsy: -- Superficial squamous mucosa with mild chronic inflammation and erosive changes. -- Specific features of allergic/eosinophilic esophagitis are not present. -- No glandular component is identified. 2. Mid esophagus, biopsies: -- Superficial squamous mucosa with mild chronic inflammation and erosive changes. -- Specific features of allergic/eosinophilic esophagitis are not present. -- No glandular component is identified. 3. Colon, sigmoid, biopsies: -- Tubular adenoma. -- No high grade dysplasia or malignancy. POST-OPERATIVE DIAGNOSIS EGD: esophagus - multiple (at least 2-3) mid/distal rings (overlapping); to transverse past proximal and mid biopsy; trachealization; gastric - erythema antrum; duodenum - grossly normal; colonoscopy: incomplete response to sedation; poor prep; 8 mm at 25 cm; polyp cold snare and clip; extended prep - anesthesia GROSS DESCRIPTION 1. The specimen is received in formalin labeled, Proximal Esophagus Biopsies, and consists of a 0.5 x 0.4 x 0.1 cm aggregate of translucent jorgensen-white irregular soft tissue fragments which is submitted entirely in one cassette. CONTINUED ON NEXT PAGE DEPARTMENT OF PATHOLOGY, [address] [place] [address] Jacoby Rebolledo M.D. Director [facility] # [id number] RUN DATE: 07/25/18 [facility] LAB LIVE PAGE 2 Patient: LUZ GONZALEZ [id number] (Continued) GROSS DESCRIPTION (Continued) 2. The specimen is received in formalin labeled, Mid Esophagus Biopsies, and consists of a 0.6 x 0.4 x 0.1 cm aggregate of translucent jorgensen-white irregular soft tissue fragments which is submitted entirely in one cassette. 3. The specimen is received in formalin labeled, Sigmoid Colon Polyp, and consists of a 0.8 x 0.4 x 0.3 cm jorgensen-red polypoid soft tissue fragment which is inked, trisected and submitted entirely in one cassette. Signed by and Reported on: Jacoby Rebolledo MD 05/02 1224 END OF REPORT DEPARTMENT OF PATHOLOGY, [address] [place] [address] Jacoby Rebolledo M.D. Director JANE # [id number] SEE RESULT BELOW Name: LUZ GONZALEZ : [address]: Tatum Roque MD Acct: [id number] Unit: [id number] AGE: 52 Location: ENDO Re07/22/18 SEX: F Status: DEP REF SPEC: [id number] ANNE MARIE: 07/22/[address] [facility] [address]: Tatum Garay MD REQ: [id number] RECD: 07/22/18 STATUS: HERB PRINGLE DR: Brice Limon MD _ ORDERED: LEVEL 4/3 FINAL DIAGNOSIS 1. Proximal esophagus, biopsy: -- Superficial squamous mucosa with mild chronic inflammation and erosive changes. -- Specific features of allergic/eosinophilic esophagitis are not present. -- No glandular component is identified. 2. Mid esophagus, biopsies: -- Superficial squamous mucosa with mild chronic inflammation and erosive changes. -- Specific features of allergic/eosinophilic esophagitis are not present. -- No glandular component is identified. 3. Colon, sigmoid, biopsies: -- Tubular adenoma. -- No high grade dysplasia or malignancy. POST-OPERATIVE DIAGNOSIS EGD: esophagus - multiple (at least 2-3) mid/distal rings (overlapping); to transverse past proximal and mid biopsy; trachealization; gastric - erythema antrum; duodenum - grossly normal; colonoscopy: incomplete response to sedation; poor prep; 8 mm at 25 cm; polyp cold snare and clip; extended prep - anesthesia GROSS DESCRIPTION 1. The specimen is received in formalin labeled, Proximal Esophagus Biopsies, and consists of a 0.5 x 0.4 x 0.1 cm aggregate of translucent jorgensen-white irregular soft tissue fragments which is submitted entirely in one cassette. CONTINUED ON NEXT PAGE DEPARTMENT OF PATHOLOGY, [address] [place] [address] Jacoby Rebolledo M.D. Director [facility] # [id number] RUN DATE: 07/25/18 [facility] LAB LIVE PAGE 2 Patient: JAZZ GONZALEZECCA [id number] (Continued) GROSS DESCRIPTION (Continued) 2. The specimen is received in formalin labeled, Mid Esophagus Biopsies, and consists of a 0.6 x 0.4 x 0.1 cm aggregate of translucent jorgensen-white irregular soft tissue fragments which is submitted entirely in one cassette. 3. The specimen is received in formalin labeled, Sigmoid Colon Polyp, and consists of a 0.8 x 0.4 x 0.3 cm jorgensen-red polypoid soft tissue fragment which is inked, trisected and submitted entirely in one cassette. Signed by and Reported on: Jacoby Rebolledo MD 05/02 1224 END OF REPORT DEPARTMENT OF PATHOLOGY, [address] [place] [address] Jacoby Rebolledo M.D. Director [facility] # [id number] SEE RESULT BELOW Name: LUZ GONZALEZ : [address]: Tatum Roque MD Acct: [id number] Unit: [id number] AGE: 52 Location: ENDO Re07/22/18 SEX: F Status: DEP REF SPEC: [id number] ANNE MARIE: 07/22/[address] [facility] [address]: Tatum Garay MD REQ: [id number] RECD: 07/22/180377 STATUS: HERB PRINGLE DR: Brice Limon MD _ ORDERED: LEVEL 4/3 ADDENDUM Deeper levels of sectioning through specimens 1 and 2 show identical histologic features. 0 eosinophils per high-power field are identified. Lamina propria is not sampled to assess for fibrosis. The previously rendered diagnoses remain unchanged. Addendum Signed (signature on file) Callie Levy MD 1103 FINAL DIAGNOSIS 1. Proximal esophagus, biopsy: -- Superficial squamous mucosa with mild chronic inflammation and erosive changes. -- Specific features of allergic/eosinophilic esophagitis are not present. -- No glandular component is identified. 2. Mid esophagus, biopsies: -- Superficial squamous mucosa with mild chronic inflammation and erosive changes. -- Specific features of allergic/eosinophilic esophagitis are not present. -- No glandular component is identified. 3. Colon, sigmoid, biopsies: -- Tubular adenoma. -- No high grade dysplasia or malignancy. CONTINUED ON NEXT PAGE DEPARTMENT OF PATHOLOGY, [address] [place] [address] Jacoby Rebolledo M.D. Director JANE # [id number] RUN DATE: 08/03/18 [facility] LAB LIVE PAGE 2 Patient: LUZ GONZALEZ [id number] (Continued) POST-OPERATIVE DIAGNOSIS (Continued) POST-OPERATIVE DIAGNOSIS EGD: esophagus - multiple (at least 2-3) mid/distal rings (overlapping); to transverse past proximal and mid biopsy; trachealization; gastric - erythema antrum; duodenum - grossly normal; colonoscopy: incomplete response to sedation; poor prep; 8 mm at 25 cm; polyp cold snare and clip; extended prep - anesthesia GROSS DESCRIPTION 1. The specimen is received in formalin labeled, Proximal Esophagus Biopsies, and consists of a 0.5 x 0.4 x 0.1 cm aggregate of translucent jorgensen-white irregular soft tissue fragments which is submitted entirely in one cassette. 2. The specimen is received in formalin labeled, Mid Esophagus Biopsies, and consists of a 0.6 x 0.4 x 0.1 cm aggregate of translucent jorgensen-white irregular soft tissue fragments which is submitted entirely in one cassette. 3. The specimen is received in formalin labeled, Sigmoid Colon Polyp, and consists of a 0.8 x 0.4 x 0.3 cm jorgensen-red polypoid soft tissue fragment which is inked, trisected and submitted entirely in one cassette. Signed by and Reported on: Jacoby Rebolledo MD 05/02 1224 END OF REPORT DEPARTMENT OF PATHOLOGY, [address] [place] [address] Jacoby Rebolledo M.D. Director JANE # [id number] SEE RESULT BELOW Name: LUZ GONZALEZ : [address]: Tatum Roque MD Acct: [id number] Unit: [id number] AGE: 52 Location: ENDO Re07/22/18 SEX: F Status: DEP REF SPEC: [id number] ANNE MARIE: 07/22/[address] [facility] [address]: Tatum Garay MD REQ: [id number] RECD: 07/22/18849 STATUS: HERB PRINGLE DR: Brice Limon MD _ ORDERED: LEVEL 4/3 ADDENDUM Deeper levels of sectioning through specimens 1 and 2 show identical histologic features. 0 eosinophils per high-power field are identified. Lamina propria is not sampled to assess for fibrosis. The previously rendered diagnoses remain unchanged. Addendum Signed (signature on file) Callie Levy MD 1103 FINAL DIAGNOSIS 1. Proximal esophagus, biopsy: -- Superficial squamous mucosa with mild chronic inflammation and erosive changes. -- Specific features of allergic/eosinophilic esophagitis are not present. -- No glandular component is identified. 2. Mid esophagus, biopsies: -- Superficial squamous mucosa with mild chronic inflammation and erosive changes. -- Specific features of allergic/eosinophilic esophagitis are not present. -- No glandular component is identified. 3. Colon, sigmoid, biopsies: -- Tubular adenoma. -- No high grade dysplasia or malignancy. CONTINUED ON NEXT PAGE DEPARTMENT OF PATHOLOGY, [address] [place] [address] Jacoby Rebolledo M.D. Director JANE # [id number] RUN DATE: 08/03/18 [facility] LAB LIVE PAGE 2 Patient: LUZ GONZALEZ [id number] (Continued) POST-OPERATIVE DIAGNOSIS (Continued) POST-OPERATIVE DIAGNOSIS EGD: esophagus - multiple (at least 2-3) mid/distal rings (overlapping); to transverse past proximal and mid biopsy; trachealization; gastric - erythema antrum; duodenum - grossly normal; colonoscopy: incomplete response to sedation; poor prep; 8 mm at 25 cm; polyp cold snare and clip; extended prep - anesthesia GROSS DESCRIPTION 1. The specimen is received in formalin labeled, Proximal Esophagus Biopsies, and consists of a 0.5 x 0.4 x 0.1 cm aggregate of translucent jorgensen-white irregular soft tissue fragments which is submitted entirely in one cassette. 2. The specimen is received in formalin labeled, Mid Esophagus Biopsies, and consists of a 0.6 x 0.4 x 0.1 cm aggregate of translucent jorgensen-white irregular soft tissue fragments which is submitted entirely in one cassette. 3. The specimen is received in formalin labeled, Sigmoid Colon Polyp, and consists of a 0.8 x 0.4 x 0.3 cm jorgensen-red polypoid soft tissue fragment which is inked, trisected and submitted entirely in one cassette. Signed by and Reported on: Jacoby Rebolledo MD 05/02 1224 END OF REPORT DEPARTMENT OF PATHOLOGY, [address] [place] [address] Jacoby Rebolledo M.D. Director [facility] # [id number] 2 Leukocytosis with Persistent mild absolute lymphocytosis. Additional studies as clinically warranted. Reviewed by Dr. Rebolledo 3 Variant LY 4 SEE RESULT BELOW Name: LUZ GONAZLEZ : [address]: Regulo Jacques MD Acct: [id number] Unit: [id number] AGE: 51 Location: ED Re08/19/17 SEX: F Status: DEP ER SPEC: [id number] ANNE MARIE: 08/19/[address]: Regulo Jacques MD REQ: [id number] RECD: 08/19/17 STATUS: RAZIA PRINGLE DR: Brice Limon MD _ SOURCE: BLOOD,VENO SPDES: ORDERED: Blood Cult Procedure Result Reported Site Aerobic Culture Bottle Final 08/24/17- 2038 ML No Growth Day 5 Anaerobic Culture Bottle Final 08/24/17- 2038 ML No Growth Day 5 * ML - Main Lab . END OF REPORT DEPARTMENT OF PATHOLOGY, [address] [place] [address] Jacoby Rebolledo M.D. Director [facility] # [id number] 5 Mild absolute lymphocytosis. If persistent, recommend correlation with flow cytometry to exclude a low-grade lymphoproliferative disorder. Reviewed by Callie Levy MD 6 Because ethnic data is not always readily available, this report includes an eGFR for both -Americans and non- Americans. The National Kidney Disease Education Program (NKDEP) does not endorse the use of the MDRD equation for patients that are not between the ages of 18 and 70, are , have extremes of body size, muscle mass, or nutritional status, or are non- or non-. According to the National Kidney Foundation, irrespective of diagnosis, the stage of the disease is based on the level of kidney function: Stage Description GFR(mL/min/1.73 m(2)) 1 Kidney damage with normal or decreased GFR 90 2 Kidney damage with mild decrease in GFR 60-89 3 Moderate decrease in GFR 30-59 4 Severe decrease in GFR 15-29 5 Kidney failure <15 (or dialysis) Procedures Description No Information Available Encounters Type Date Location Provider Dx Diagnosis Office Visit 05/24/2018 Gastroenterology Tatum R13.10 Dysphagia, 11:30a [facility] kayley Roqueified Z12.11 Encounter for screening for malignant neoplasm of colon Plan of Treatment No Information Available
--- OUTSIDE RECORDS SUMMARY | 2018-08-07 14:03 | XMS REPORT | Continuity of Care Document ---
:1965 External Reference #:[id number] Author Name Vignesh Keli Care Team Providers Name Role Phone Brice Limon MD Primary Care Physician Unavailable Payers Date Identification Numbers Payment Provider Subscriber Policy Number: [id number] [facility] Luz Dangeloox PayID: [id number] [address] [place] [address] Policy Number: [id number] [employer] Clinton Gonzalez PayID: [id number] [address] [place] [address] Advance Directives Description No Information Available Problems Date Description Provider Status Onset: 04/26/2018 Localized, primary osteoarthritis of the Klever Peterson MD Active hand Onset: 04/26/2018 Disorder of shoulder Klever Peterson MD Active Family History Date Family Member(s) Observation Comments Mother Brain Cancer Maternal Grandmother perineal cancer Social History Type Date Description Comments Sex Unknown Lives With Tobacco Use Start: Unknown Heavy tobacco smoker (more than 10 cigarettes/day) Smoking Status Reviewed: 07/21/18 Heavy tobacco smoker (more than 10 cigarettes/day) Tobacco Use Start: Unknown Heavy tobacco smoker (more than 10 cigarettes/day) Exercise Type/Frequency Exercises regularly Allergies, Adverse Reactions, Alerts Date Description Reaction Status Severity Comments 08/11/2016 Penicillin Active 08/11/2016 Hydrocodone Active Medications Medication Date Status Form Strength Qnty SIG Indications Ordering Provider Voltaren Active Gel 1% 500gm apply 2 Klever 8 grams to MD Kristen affected areas four times a day as needed Abdominal Active Misc 1unit apply as Avinash Bryan/Seven 8 s directed Hanna Limon M.D. Adderall XR Active Caps ER 10mg 1 by mouth Unknown 0 24HR every day mdd 1 Advair HFA Active Aerosol 115-21mcg 2 puff Unknown 0 /Act twice a day Ventolin HFA Active Aerosol 108(90Bas 2 puffs by Unknown 0 e) mouth four mcg/Act times a day as needed Ipratropium Active Solution 0.5-2.5(3 1 vial in Unknown [place] 0 )mg/3ML nebulizer rol Sulfate three times a day as needed for asthma Motrin Ib Active Tablets 200mg 3 twice a Unknown 0 day as needed Ondansetron Active Tablets 4mg dissolve 1 Unknown 0 Dispers tablet On Tongue every 6 hours if needed for nausea Nystatin Hx Cream [id number] 30uni topically Shayleeorly Manning 8 - t/GM ts twice a MD Kin Unknown day to the skin around the wound as needed Avelox Hx Tablets 400mg 14tab 1 by mouth Brigitte 8 - s every day B. Unknown Eckenrode, AEROPLANE PILOT Avelox Hx Tablets 400mg 10tab Take 1 Brigitte 8 - s Tablet PO B. Unknown qd Eckenrode, AEROPLANE PILOT Doxycycline Hx Tablets 100mg 30tab 1 by mouth Avinash Price Hyclate 8 - s twice a Schwed, Unknown day M.D. Bactrim DS Hx Tablets 800-160mg 30tab 1 by mouth Luís. 8 - s twice a Schwed, Unknown day M.D. Bactrim DS Hx Tablets 800-160mg 30tab 1 by mouth Luís. 8 - s twice a Schwed, Unknown day M.D. No Active Hx Rajesh Castrejon - MD Mariana, FACS 8 Clindamycin Hx Capsules 300mg take 1 Unknown HCL 0 - capsule by Unknown mouth every 6 hours maximum daily dose of 4 Ketorolac Hx Tablets 10mg 12tab take 1 Shaylee Manning Tromethamine 0 - s tablet by MD Kin mouth 9 every 6 hours if needed for pain maximum daily Oxycodone-Acet Hx Tablets 5-325mg take 1 Unknown aminophen 0 - tablet by Unknown mouth every 4 hours if needed for pain maximum daily Immunizations Description No Information Available Vital Signs Date Vital Result Comment 07/21/2018 9:34am Height 69 inches 5'9" Weight 231.00 lb Heart Rate 89 /min BP Systolic 135 mmHg BP Diastolic 86 mmHg O2 % BldC Oximetry 100 % BMI (Body Mass Index) 34.1 kg/m2 07/05/2018 1:36pm Height 69 inches 5'9" Weight 231.00 lb Heart Rate 78 /min BP Systolic 138 mmHg BP Diastolic 86 mmHg Body Temperature 97.8 F Pain Level 8 By The End Of The Day BMI (Body Mass Index) 34.1 kg/m2 06/21/2018 4:25pm Height 69 inches 5'9" Weight 230.00 lb Heart Rate 89 /min BP Systolic 116 mmHg BP Diastolic 81 mmHg O2 % BldC Oximetry 97 % BMI (Body Mass Index) 34.0 kg/m2 Last Menstrual Period [id number] 04/26/2018 11:28am Height 69 inches 5'9" Weight 224.75 lb Heart Rate 75 /min BP Systolic 138 mmHg BP Diastolic 88 mmHg Respiratory Rate 18 /min Body Temperature 98.0 F Pain Level 4 BMI (Body Mass Index) 33.2 kg/m2 01/14/2018 10:43am Heart Rate 80 /min Respiratory Rate 18 /min Body Temperature 97.7 F 12/27/2017 11:46am Heart Rate 82 /min Respiratory Rate 18 /min Body Temperature 97.9 F 12/10/2017 1:37pm Heart Rate 82 /min Respiratory Rate 16 /min Body Temperature 97.9 F 12/03/2017 9:14am Heart Rate 96 /min Respiratory Rate 18 /min Body Temperature 97.2 F 11/26/2017 2:24pm Heart Rate 80 /min Respiratory Rate 16 /min Body Temperature 97.3 F 11/23/2017 11:38am Heart Rate 120 /min Respiratory Rate 18 /min Body Temperature 97.6 F 11/16/2017 10:07am Heart Rate 74 /min Respiratory Rate 16 /min Body Temperature 97.2 F 11/12/2017 10:10am Heart Rate 82 /min Respiratory Rate 16 /min Body Temperature 97.2 F 11/05/2017 10:05am Heart Rate 100 /min Respiratory Rate 16 /min Body Temperature 97.5 F 11/04/2017 10:16am Heart Rate 82 /min Respiratory Rate 16 /min Body Temperature 97.5 F 11/02/2017 2:02pm Heart Rate 80 /min Respiratory Rate 16 /min Body Temperature 97.5 F 10/29/2017 1:34pm Heart Rate 96 /min Respiratory Rate 18 /min Body Temperature 97.9 F 10/28/2017 10:00am Heart Rate 84 /min Respiratory Rate 16 /min Body Temperature 97.9 F 10/27/2017 10:44am Heart Rate 88 /min Respiratory Rate 16 /min Body Temperature 97.3 F 10/26/2017 11:36am Heart Rate 76 /min Respiratory Rate 16 /min Body Temperature 97.7 F 10/25/2017 10:06am Heart Rate 80 /min Respiratory Rate 16 /min Body Temperature 97.4 F 10/22/2017 12:55pm Heart Rate 78 /min Respiratory Rate 18 /min Body Temperature 97.3 F 10/21/2017 10:13am Heart Rate 84 /min Respiratory Rate 16 /min Body Temperature 97.2 F 10/20/2017 10:33am Heart Rate 98 /min Respiratory Rate 16 /min Body Temperature 98.3 F 10/19/2017 11:50am Heart Rate 100 /min Respiratory Rate 16 /min Body Temperature 97.5 F 10/18/2017 10:58am Heart Rate 80 /min Respiratory Rate 16 /min Body Temperature 97.2 F 10/15/2017 11:14am Heart Rate 96 /min Respiratory Rate 18 /min Body Temperature 97.7 F 10/13/2017 11:07am Heart Rate 100 /min BP Systolic 140 mmHg BP Diastolic 90 mmHg Respiratory Rate 20 /min Body Temperature 98.3 F 10/12/2017 2:14pm Heart Rate 78 /min BP Systolic Sitting 160 mmHg 130/82 BP Diastolic Sitting 100 mmHg 130/82 Respiratory Rate 18 /min Body Temperature 98.7 F 10/11/2017 9:48am Heart Rate 78 /min Respiratory Rate 18 /min Body Temperature 97.4 F 10/08/2017 11:51am Heart Rate 84 /min Respiratory Rate 16 /min Body Temperature 97.4 F 10/05/2017 10:52am Heart Rate 84 /min Respiratory Rate 16 /min Body Temperature 97.2 F 09/29/2017 9:39am Heart Rate 76 /min Respiratory Rate 18 /min Body Temperature 98.1 F 09/24/2017 11:57am Heart Rate 90 /min Respiratory Rate 18 /min Body Temperature 97.5 F 09/21/2017 11:53am Heart Rate 80 /min Respiratory Rate 16 /min Body Temperature 97.4 F 09/20/2017 10:34am Heart Rate 76 /min BP Systolic 115 mmHg BP Diastolic 70 mmHg Respiratory Rate 18 /min Body Temperature 98.4 F 09/08/2017 11:34am Heart Rate 100 /min Respiratory Rate 20 /min Body Temperature 97.3 F 09/03/2017 1:56pm Heart Rate 90 /min BP Systolic Sitting 126 mmHg BP Diastolic Sitting 78 mmHg Respiratory Rate 18 /min Body Temperature 97.4 F 08/23/2017 1:11pm Height 68 inches 5'8" Weight 230.00 lb Heart Rate 72 /min BP Systolic 130 mmHg BP Diastolic 80 mmHg Respiratory Rate 18 /min Body Temperature 98.3 F BMI (Body Mass Index) 35.0 kg/m2 12/19/2015 8:31am Height 68 inches 5'8" Weight 220.00 lb BMI (Body Mass Index) 33.4 kg/m2 05/06/2011 3:30pm Height 67 inches 5'7" Weight 200.00 lb Heart Rate 83 /min BP Systolic 126 mmHg BP Diastolic 81 mmHg BMI (Body Mass Index) 31.3 kg/m2 Results Test Date Facility Test Result H/L Range Note Laboratory test 06/21/2018 [facility] Cytology SEE RESULT [address] [place] [address] [phone] Wound 10/15/2017 [facility] Wound/Misc SEE RESULT 2, 3 Culture/Sensi [address] [place] [address] Stain [phone] Wound 10/05/2017 [facility] Wound/Misc SEE RESULT 4 Culture/Sens[facility] [address] [place] [address] Stain [phone] Wound 09/20/2017 [facility] Wound/Misc SEE RESULT 5 Culture/Sens[facility] [address] [place] [address] Stain [phone] 1 SEE RESULT BELOW Name: LUZ GONZALEZ : [address]: Rabia Pool MD Acct: [id number] Unit: [id number] AGE: 52 Location: [facility] Re06/21/18 SEX: F Status: REG REF SPEC: [id number] ANNE MARIE: 06/21/[address]: Rabia Pool MD REQ: [id number] RECD: 06/21/18 STATUS: SOUT _ ORDERED: TP IMAGE ANALYS, HPV/Thin Prep COMMENTS: [id number] Negative for Intraepithelial lesion or Malignancy Date Time Test Result Flag (u) Normal Range 06/21/181655 @ HPV RNA Negative Negative @ @ The high-risk HPV types detected by the assay include: 16, @ 18, 31, 33, 35, 39, 45, 51, 52, 56, 58, 59, 66, and 68. A. Ectocervical/Endocervical Specimen Adequacy: Satisfactory of evaluation Transformation zone component identified Patient Information: HPV: High risk HPV RNA testing regardless of pap results. Actual Specimen Date: 06/21/18 ?: N Post Menopausal?: Y Hysterectomy?: N Signed by and Reported on: EAN Strong (ASCP) 1414 This Pap test was evaluated with the assistance of the [employer] Test Imaging System. Due to cytologic findings at the transmission operator microscope, comprehensive manual rescreening by a Thermo Processor may be required. The Pap Smear is a screening test designed to aid in the detection of premalignant and malignant conditions of the uterine cervix. It is not a diagnostic procedure and should not be used as the sole means of detecting cervical cancer. Both false- positive and false- negative reports do occur. Depending on your risk status, a Pap smear should be obtained and evaluated every 1-3 years. END OF REPORT DEPARTMENT OF PATHOLOGY, [address] [place] [address] Jacoby Rebolledo M.D. Director [facility] # [id number] 2 [id number] 3 SEE RESULT BELOW Name: LUZ GONZALEZ : [address]: Avinash Limon MD Acct: [id number] Unit: [id number] AGE: 51 Location: [facility] Re10/15/17 SEX: F Status: REG REF SPEC: [id number] ANNE MARIE: 10/15/17-[address]: Avinash Limon MD REQ: [id number] RECD: 10/15/17 STATUS: COMP [facility] DR: Brice Limon MD _ SOURCE: ABDOMEN SPDESC: ORDERED: Culture Stain COMMENTS: [id number] Procedure Result Reported Site Wound/Misc Gram Stain Final 10/16/17- 0728 ML 4+ Neutrophils 1+ Gram Positive Cocci in Clusters, resembling Staph 1+ Gram Positive Bacilli Wound/Misc Culture Final 10/17/17- 1255 ML Organism 1 PEPTONIPHILUS ASACCHAROLYTICUS Quantity 2+ Organism 2 CORYNEBACTERIUM SPECIES Quantity 1+ Anaerobic sensitivities are not routinely performed. Positive isolates will be saved for one week. Please call the Microbiology Laboratory if susceptibility testing is needed. * ML - Main Lab . END OF REPORT DEPARTMENT OF PATHOLOGY, [address] [place] [address] Jacoby Rebolledo M.D. Director [facility] # [id number] 4 SEE RESULT BELOW Name: LUZ GONZALEZ : [address]: Avinash Limon MD Acct: [id number] Unit: [id number] AGE: 51 Location: [facility] Re10/05/17 SEX: F Status: REG REF SPEC: [id number] ANNE MARIE: 10/05/17-[address]: Avinash Limon MD REQ: [id number] RECD: 10/05/17 STATUS: COMP _ SOURCE: ABDOMEN SPDESC: ORDERED: Culture Stain COMMENTS: [id number] Specimen Description umbilical wound Procedure Result Reported Site Wound/Misc Gram Stain Final 10/06/17- 0731 ML 4+ Neutrophils 1+ Epithelial Cells 4+ Gram Positive Cocci 1+ Gram Negative Bacilli 1+ Gram Positive Bacilli Wound/Misc Culture Final 10/07/17- 1155 ML Organism 1 FINEGOLDIA MAGNA Quantity 3+ Anaerobic sensitivities are not routinely performed. Positive isolates will be saved for one week. Please call the Microbiology Laboratory if susceptibility testing is needed. * ML - Main Lab . END OF REPORT DEPARTMENT OF PATHOLOGY, [address] [place] [address] Jacoby Rebolledo M.D. Director [facility] # [id number] 5 SEE RESULT BELOW Name: LUZ GONZALEZ : [address]: Eladio Brower MD Acct: [id number] Unit: [id number] AGE: 51 Location: [facility] Re09/20/17 SEX: F Status: REG REF SPEC: [id number] ANNE MARIE: 09/20/17-[address]: Eladio Brower MD REQ: [id number] RECD: 09/20/17 STATUS: COMP _ SOURCE: WOUND SPDESC: ORDERED: Culture Stain COMMENTS: [id number] Specimen Description umbilical wound Procedure Result Reported Site Wound/Misc Gram Stain Final 09/21/17- 0721 ML 2+ Neutrophils 1+ Epithelial Cells 1+ Gram Positive Cocci Wound/Misc Culture Final 09/22/17- 1623 ML Organism 1 NORMAL RASHEEDA Quantity 1+ * ML - Main Lab . END OF REPORT DEPARTMENT OF PATHOLOGY, [address] [place] [address] Jacoby Rebolledo M.D. Director [facility] # [id number] Procedures Date Code Description Status 05/14/2018 39741700 Mammogram Completed 10/07/2017 51342 EKG, Interpretation Only Completed 10/07/2017 44917 I&D Of Hematoma Completed 10/07/2017 01172 I&D Of Hematoma Completed 08/26/2017 66071 Implant For Incisional/Ventral Hernia Repair Completed 08/26/2017 01447 Implant For Incisional/Ventral Hernia Repair Completed 08/26/2017 71052 Repair Hernia Incisional/Ventral Initial, Reducible Completed 08/26/2017 54498 Repair Hernia Incisional/Ventral Initial, Reducible Completed Encounters Type Date Location Provider Dx Diagnosis Office Visit 04/26/2018 Orthopedic Klever Peterson, M18.0 Bilateral primary 10:30a [facility] osteoarth of first carpometacarp joints M75.41 Impingement syndrome of right shoulder Office Visit 01/14/2018 10:30a Surgical Avinash Limon, L76.34 [facility]proc [facility]oma [facility] of skin, subcu following other procedure Office Visit 12/27/2017 11:45a Surgical Brigitte Church48.01 Encounter for [facility] NP change or removal of surgical wound dressing K42.9 Umbilical hernia without obstruction or gangrene Office Visit 12/10/2017 1:30p Surgical Rajinder Ferro Z48.01 Encounter for [facility] change or Network Administrator removal of surgical wound dressing K42.9 Umbilical hernia without obstruction or gangrene Office Visit 12/03/2017 9:15a Raya Price Schwed, L76.34 Postproc seroma [facility] of skin, subcu following other procedure Office Visit 11/30/2017 9:15a Surgical Brigitte Castillo Z48.01 Encounter for [facility] AEROPLANE PILOT change or removal of surgical wound dressing L76.34 Postproc seroma of skin, subcu following other procedure Office Visit 11/26/2017 2:30p Surgical Brigitte Castillo Z48.01 Encounter for [facility], AEROPLANE PILOT change or removal of surgical wound dressing L76.34 Postproc seroma of skin, subcu following other procedure Office Visit 08/20/2017 7:00a Surgical Avinash Price K42.9 Umbilical hernia [facility] M.D. without obstruction or gangrene Office Visit 05/18/2011 4:15p Orthopedic Jerel Kapadia, 716.97 Arthropathy Services [facility] Office Visit 05/06/2011 3:15p Orthopedic Jerel Kapadia, 733.94 Stress F[facility] Metatarsals Plan of Treatment Future Appointment(s):08/10/2018 9:15 am - Klever Petersno MD at [facility]07/28/2018 10:30 am - [place] Smith at [facility]07/28/2018 10:30 am - Klever Peterson MD at [facility]
--- OUTSIDE RECORDS SUMMARY | 2018-08-07 14:03 | XMS REPORT | Continuity of Care Document ---
:1965 External Reference #:[id number] Author Name Tatum Roque MD Address [address] [place] [id number] Care Team Providers Name Role Phone Brice Limon MD Care Team Information Forensic Audit Expert Unavailable Brice Limon MD Primary Care Physician Unavailable Payers Date Identification Numbers Payment Provider Subscriber Policy Number: [id number] [place] Luz Gonzalez PayID: [id number] [address] [address] [place] [address] Policy Number: [id number] / Reg 1 Clinton Dangeloox PayID: [id number] [address] [place] [address] Advance Directives Description No Information Available Problems [...] J45.998 Manoj, N /Act ts twice a icole,PLANT ELECTRICAL ENGINEER day Hydrochlorothiazide 11/20 Active Tablets 12.5mg 90tab 1 by mouth M79.672 Manoj, s every icole,PLANT ELECTRICAL ENGINEER morning as needed Hydrochlorothiazide 11/20 Active Tablets 12.5mg 90tab M79.672 Manoj, N s icole,PLANT ELECTRICAL ENGINEER Ventolin HFA 09/15 Active Aerosol 108(90Bas 54uni inhale 2 J45.998 Manoj,N e) ts puffs icole,PLANT ELECTRICAL ENGINEER mcg/Act every 4-6 hours as needed for asthma, shortness of breath, cough,or wheeze Ventolin HFA 09/15 Active Aerosol 108(90Bas 54uni J45.998 Manoj,N e) ts icole,PLANT ELECTRICAL ENGINEER mcg/Act Ipratropium 08/31 Active Solution 0.5-2.5(3 270un use bid- J06.9 Manoj,N Sarepta/Albuterol /2014 )mg/3ML its three icole,PLANT ELECTRICAL ENGINEER Sulfate times a day in nebulizer as needed Azithromycin 07/26 Hx Tablets 250mg 6tabs z pedro as J45.909 Manoj, directed, icole,PLANT ELECTRICAL ENGINEER - 2 tabs day 05/24 one, tab day 2-5 Advair HFA 02/02 Hx Aerosol 115-21mcg 36uni J45.998 ManojN /Act ts icole,PLANT ELECTRICAL ENGINEER - 05/24 Methylphenidate HCL 04/23 Hx Tablets 10mg 60tab 1 by mouth F90.0 Braxton , s once a day MD [facility] - or two 05/24 times day as directed Ipratropium 20 Hx Solution 0.5-2.5(3 270un J06.9 Manoj,N Sarepta/Albuterol )mg/3ML its icole,PLANT ELECTRICAL ENGINEER Sulfate - 05/24 Zofran Odt Hx Tablets [...] Result H/L Range Note Laboratory test 07/22/2018 [facility] SEE RESULT 1 finding Interface Order BELOW Laboratory test 02/18/2018 N2N/CCD Import Pathologist [...] g/dL 6.4-8.9 1 SEE RESULT BELOW Name: MARSHALL GONZALEZCA : [address]: Tatum Roque MD Acct: [id number] Unit: [id number] AGE: 52 Location: ENDO Re07/22/18 SEX: F Status: DEP REF SPEC: [id number] ANNE MARIE: 07/22/18 IMAN MERAZ: Tatum Garay MD REQ: [id number] RECD: 07/22/18 STATUS: HERB PRINGLE DR: Brice [...] CONTINUED ON NEXT PAGE DEPARTMENT OF PATHOLOGY, [address] [place] [address] Jacoby Rebolledo M.D. Director [facility] # [id number] RUN DATE: 07/25/18 [facility] LAB LIVE PAGE 2 Patient: LUZ GONZALEZ [id number] (Continued) GROSS DESCRIPTION (Continued) 2. The specimen [...] 1224 END OF REPORT DEPARTMENT OF PATHOLOGY, [address] [place] [address] Jacoby Rebolledo M.D. Director [facility] # [id number] SEE RESULT BELOW Name: LUZ GONZALEZ : [address]: Tatum Roque MD Acct: [id number] Unit: [id number] AGE: 52 Location: ENDO Re07/22/18 SEX: F Status: DEP REF SPEC: [id number] ANNE MARIE: 07/22/[address] [facility] [address]: Tatum Garay MD REQ: [id number] RECD: 07/22/18 STATUS: HERB PRINGLE DR: Brice [...] CONTINUED ON NEXT PAGE DEPARTMENT OF PATHOLOGY, [address] [place] [address] Jacoby Rebolledo M.D. Director [facility] # [id number] RUN DATE: 07/25/18 [facility] LAB LIVE PAGE 2 Patient: LORRILUZ [id number] (Continued) GROSS DESCRIPTION (Continued) 2. The specimen [...] 1224 END OF REPORT DEPARTMENT OF PATHOLOGY, [address] [place] [address] Jacoby Rebolledo M.D. Director [facility] # [id number] 2 Leukocytosis with Persistent mild absolute lymphocytosis. Additional studies as clinically warranted. Reviewed by Dr. Rebolledo 3 Variant LY 4 SEE RESULT BELOW Name: LUZ GONZALEZ : [address]: Regulo Jacques MD Acct: [id number] Unit: [id number] AGE: 51 Location: ED Re08/19/17 SEX: F Status: DEP ER SPEC: [id number] ANNE MARIE: 08/19/17-[address] [facility] [address]: Regulo Jacques MD REQ: [id number] RECD: 08/19/17 STATUS: RAZIA PRINGLE DR: Brice Limon MD _ SOURCE: BLOOD,VENO [facility]: ORDERED: Blood Cult Procedure Result Reported Site Aerobic Culture Bottle Final 08/24/17- 2038 ML No Growth Day 5 Anaerobic Culture Bottle Final 08/24/17- 2038 ML No Growth Day 5 * ML - Main Lab . END OF REPORT DEPARTMENT OF PATHOLOGY, [address] [place] [address] Jacoby Rebolledo M.D. Director [facility] # [id number] 5 Mild absolute lymphocytosis. If persistent, recommend [...] Visit 05/24/2018 Gastroenterology Tatum R13.10 Dysphagia, 11:30a [facility], unspecified Z12.11 Encounter for screening for malignant neoplasm of colon Plan of Treatment No Information Available
--- OUTSIDE RECORDS SUMMARY | 2018-08-07 14:03 | XMS REPORT | Continuity of Care Document ---
:1965 External Reference #:[id number] Author Name Natalie Shelley, BLAKE Address [address] [place] [address] Care Team Providers Name Role Phone Brice Limon MD Care Team Information Clinical Data Assistant Unavailable Brice Limon MD Primary Care Physician Unavailable Payers Date Identification Numbers Payment Provider Subscriber Effective: Policy Number: [id number] [facility] Clinton Gonzalez 2015 PayID: [id number] [address] [address] [place] [address] Advance Directives Description No Information Available Problems Date Description Provider Status Onset: 02/20/2016 Adrenal mass Brice Limon M.D. Active Onset: 04/23/2016 Asthma without status asthmaticus Brice Limon M.D. Active Onset: 04/23/2016 Disorder of adrenal gland Brice Limon M.D. Active Family History Description No Information Available Social History Type Date Description Comments Sex Unknown Marital Status Legal Status: Lives With Spouse Lives With 1 daughter , 1 son Lives With 4 foster children and 2 homeless Sleep Reports continuity disturbances Tobacco Use Start: Unknown less than 1/2 ppd quit for 5-6 years while kids were small ETOH Use Denies alcohol use Tobacco Use Start: Unknown Patient is a current smoker, smokes every day Smoking Status Reviewed: 07/26/17 Patient is a current smoker, smokes every day Exercise active lifestyle hikes , gardens Type/Frequency Allergies, Adverse Reactions, Alerts Date Description Reaction Status Severity Comments 03/13/2014 Penicillin itching Active 03/13/2014 Codeine Active 02/20/2016 Dilaudid vomiting Active Medications Medication Date Status Form Strength Qnty SIG Indications Ordering Provider Methylphenidate 04/20/ Active Caps ER 20mg 30cap 1 by mouth F90.0 Natalie C. Hydrochloride ER 2018 24HR s in the Karsten, morning OYSTER SHUCKER Nebulizer 07/26/ Active Kit 1unit Use as J45.909 Skylar Kit/Tubing/Mouthp 2017 s needed Albina iece with Manoj nebulizer OYSTER SHUCKER solutuon Advair HFA 02/02/ Active Aerosol 115-21mcg 36gm 2 puff J45.998 Skylar 2017 /Act twice a Albina day Manoj OYSTER SHUCKER Ankle Brace 11/20/ Active Misc L ankle; M79.672 Judy Bzojkr-So-Qfd/One 2016 use for Counselor, Size comfort M.D. Ventolin HFA 09/15/ Active Aerosol 108(90Bas 54gm inhale 2 J45.998 Skylar 2014 e) puffs Albina mcg/Act every 4-6 Aranda, hours as OYSTER SHUCKER needed for asthma, shortness of breath, cough,or wheeze Ipratropium 08/31/ Active Solution 0.5-2.5(3 270ml use bid- J06.9 Skylar [place]/Albuterol 2014 )mg/3ML three Albina Sulfate times a Aranda, day in OYSTER SHUCKER nebulizer as needed J45.998 Zofran Odt Active Tablets 1-2 tab Unknown Dispers under tongue every 8 hours as needed Ibuprofen Active Tablets 600 1 tab by Unknown mg mouth every 8 hours as needed pain. take with food Hydrocodone-Acetaminoph Active Tablets 5-3 1 by mouth Unknown en 25m four times g a day as needed pain Omeprazole Active Capsules DR 20m 1 by mouth Unknown g bid Moxifloxacin HCL Active Tablets 400 1 by mouth Unknown mg every day Prednisone 07/29/2017 - Hx Tablets 10m 10t 4 by mouth Brice A. 08/02/2017 g abs x 1 day, Darlow, then 3 by M.D. mouth x 1 day, then 2 by mouth x 1 day, then 1 by mouth x 1 day Azithromycin 07/26/2017 - Hx Tablets 250 6ta z pedro as J45 Skylar Albina 10/12/2017 mg bs directed, 2 .90 Aranda, tabs day 9 OYSTER SHUCKER one, one tab day 2-5 Hydrochlorothiazide 11/20/2016 - Hx Tablets 12. 90t 1 by mouth M79 Skylar Albina 08/04/2018 5mg abs every .67 Aranda, morning as 2 OYSTER SHUCKER needed Azithromycin 10/01/2016 - Hx Tablets 250 6ta 2 by mouth J02 Caryn L. 11/19/2016 mg bs today. 1 by .9 Eric, mouth daily M.D. x 4 Methylphenidate HCL 04/23/2016 - Hx Tablets 10m 60t 1 by mouth F90 Skylar Albina 04/20/2018 g abs once a day .0 Aranda, or two OYSTER SHUCKER times a day as directed Cheratussin ac 09/25/2014 - Hx Syrup 100 4oz 1-2 786 Kailee 12/06/2014 -10 teaspoon by .2 Alannah, mg/ mouth every Afnp-C 5ML night at bedtime as needed cough Benzonatate 09/25/2014 - Hx Capsules 200 30c 1 by mouth 786 Kailee 10/05/2014 mg aps three times .2 Alannah, a day as Afnp-C needed for cough Prednisone 09/25/2014 - Hx Tablets 20m 13t 3 tabs qd x 786 Kailee 10/05/2014 g abs 2; then 2 .2 Alannah, tabs qd x Afnp-C 2, then 1 tab qd x 2, then 1/2 tab x 2 days Symbicort 09/17/2014 - Hx Aerosol 160 10. 2 puff J45 Judy 02/02/2017 -4. 200 twice a day .99 Counselor, [facility] [place] 8 M.D. g/A ct Azithromycin 08/31/2014 - Hx Tablets 250 12t take 2 465 Evette 09/17/2014 mg abs tablets by .8 Peg, mouth daily [employer] x 3d then take 1 tablet daily for next 6 days Prednisone 08/31/2014 - Hx Tablets 20m 14t 1 twice a 465 Evette 09/17/2014 g abs day x 7d .8 Peg, [employer] Cheratussin ac 08/31/2014 - Hx Syrup 100 4oz 1-2 465 Evette 09/25/2014 -10 teaspoon by .8 Peg, mg/ mouth every [employer] 5ML night at bedtime as needed cough Bactrim DS - Hx Tablets 1 by mouth Unknown 09/13/2017 twice a day Doxycycline Hyclate - Hx Capsules 1 by mouth Unknown 04/20/2018 twice a day Ketorolac Tromethamine - Hx Tablets 10m take one by Unknown 08/04/2018 g mouth q 6 hr prn Medications Administered in Office Medication Date Status Form Strength Qnty SIG Indications Ordering Provider TB Intradermal Administered Injection Brice Urias 017 Jacquie Limon TB Intradermal Administered Injection Adonay Barrett 015 Jacquie TB Intradermal Administered Injection Adonay Barrett M.D. Immunizations Description No Information Available Vital Signs Date Vital Result Comment 08/05/2018 3:11pm BP Systolic 140 mmHg BP Diastolic 88 mmHg Heart Rate 78 /min Body Temperature 97.2 F Height 67 inches 5'7" Weight 228.00 lb BMI (Body Mass Index) 35.7 kg/m2 04/20/2018 2:36pm BP Systolic 140 mmHg BP Diastolic 80 mmHg Heart Rate 84 /min Body Temperature 98.1 F Respiratory Rate 16 /min Height 67 inches 5'7" Weight 220.00 lb BMI (Body Mass Index) 34.5 kg/m2 10/13/2017 1:56pm BP Systolic 144 mmHg BP Diastolic 80 mmHg Heart Rate 80 /min Body Temperature 98.6 F Respiratory Rate 17 /min Height 67 inches 5'7" Weight 219.00 lb BMI (Body Mass Index) 34.3 kg/m2 09/27/2017 3:58pm BP Systolic 120 mmHg BP Diastolic 72 mmHg Heart Rate 80 /min Body Temperature 98.1 F Respiratory Rate 16 /min Height 67 inches 5'7" Weight 219.00 lb BMI (Body Mass Index) 34.3 kg/m2 07/26/2017 11:56am BP Systolic 110 mmHg BP Diastolic 72 mmHg Heart Rate 64 /min Body Temperature 98.6 F Respiratory Rate 18 /min Height 67 inches 5'7" Weight 235.00 lb BMI (Body Mass Index) 36.8 kg/m2 11/20/2016 1:31pm BP Systolic 106 mmHg BP Diastolic 80 mmHg Heart Rate 104 /min Body Temperature 97.7 F Height 68 inches 5'8" Weight 238.38 lb BMI (Body Mass Index) 36.2 kg/m2 10/01/2016 3:08pm BP Systolic 120 mmHg BP Diastolic 80 mmHg Heart Rate 80 /min Body Temperature 99.0 F Respiratory Rate 18 /min Height 68 inches 5'8" Weight 241.00 lb BMI (Body Mass Index) 36.6 kg/m2 04/23/2016 3:06pm BP Systolic 140 mmHg BP Diastolic 70 mmHg Heart Rate 96 /min Body Temperature 97.3 F Respiratory Rate 16 /min Height 68 inches 5'8" Weight 236.00 lb BMI (Body Mass Index) 35.9 kg/m2 02/20/2016 5:50pm BP Systolic 140 mmHg BP Diastolic 94 mmHg Heart Rate 88 /min Body Temperature 97.1 F Respiratory Rate 16 /min Height 68 inches 5'8" Weight 232.00 lb BMI (Body Mass Index) 35.3 kg/m2 12/06/2014 1:51pm BP Systolic 122 mmHg BP Diastolic 82 mmHg Heart Rate 84 /min Body Temperature 98.0 F Height 68 inches 5'8" Weight 237.00 lb BMI (Body Mass Index) 36.0 kg/m2 09/25/2014 1:44pm BP Systolic 110 mmHg BP Diastolic 64 mmHg Heart Rate 85 /min Body Temperature 98.5 F Respiratory Rate 16 /min O2 % BldC Oximetry 98 % Height 68 inches 5'8" Weight 232.00 lb BMI (Body Mass Index) 35.3 kg/m2 09/17/2014 12:49pm BP Systolic 128 mmHg BP Diastolic 80 mmHg Heart Rate 96 /min Body Temperature 98.9 F Respiratory Rate 16 /min Height 68 inches 5'8" Weight 321.12 lb BMI (Body Mass Index) 48.8 kg/m2 08/31/2014 2:48pm BP Systolic 122 mmHg BP Diastolic 82 mmHg Heart Rate 71 /min Body Temperature 98.3 F O2 % BldC Oximetry 96 % Height 68 inches 5'8" Weight 234.00 lb BMI (Body Mass Index) 35.6 kg/m2 03/13/2014 9:11am BP Systolic 110 mmHg BP Diastolic 70 mmHg Heart Rate 80 /min Body Temperature 98.1 F Respiratory Rate 16 /min Height 68 inches 5'8" Weight 236.38 lb BMI (Body Mass Index) 35.9 kg/m2 Results Test Date Facility Test Result H/L Range Note Laboratory test 07/22/2018 [facility] [place] SEE RESULT 1 finding BELOW Leukemia/Lymphoma 06/02/2018 [facility] [place] Interpretation (SEE NOTE) 2 Phenot 2-8 Marker CLL (US Labs) 06/02/2018 [facility] [place] Specimen Bone Marrow CLL Reason for Referral See Comment 3 CLL Method See Comment 4 CLL Result Table See Comment 5 CLL Result See Comment 6 CLL Result Summary Normal CLL Interpretation See Comment 7 CLL Disclaimer See Comment 8 CLL Released by See Comment 9 CBC Auto Diff 06/02/2018 [facility] [place] Blood Count 11.8 10^3/uL High 3.5- 10.8 Red Blood Count 4.69 10^6/uL N 4.00-5.40 Hemoglobin 15.0 g/dL N 12.0-16.0 Hematocrit 45 % N 35-47 Mean Corpuscular Volume 95 fL N 80-97 Mean Corpuscular Hemoglobin 32 pg High 27-31 Mean Corpuscular HGB Conc 34 g/dL N 31-36 Red Cell Distribution Width 14 % N 10.5-15 Platelet Count 434 10^3/uL N 150-450 Mean Platelet Volume 8.4 fL N 7.4-10.4 Abs Neutrophils 3.8 10^3/uL N 1.5-7.7 Abs Lymphocytes 6.7 10^3/uL High 1.0-4.8 Abs Monocytes 1.0 10^3/uL High 0-0.8 Abs Eosinophils 0.3 10^3/uL N 0-0.6 Abs Basophils 0.1 10^3/uL N 0-0.2 Abs Nucleated RBC 0 10^3/uL Granulocyte % 32.0 % Lymphocyte % 56.6 % Monocyte % 8.1 % Eosinophil % 2.4 % Basophil % 0.9 % Nucleated Red Blood Cells % 0 Laboratory test 06/02/2018 [facility] [place] Review (SEE NOTE) 10 finding Laboratory test 05/07/2018 [facility] [place] TSH (Thyroid Stim 0.95 mcIU/mL N 0.34- 5.60 finding Horm) CBC Auto Diff 05/07/2018 [facility] [place] Blood Count 10.8 10^3/uL N 3.5-10.8 Red Blood Count 4.55 10^6/uL N 4.00-5.40 Hemoglobin 14.8 g/dL N 12.0-16.0 Hematocrit 43 % N 35-47 Mean Corpuscular Volume 95 fL N 80-97 Mean Corpuscular Hemoglobin 33 pg High 27-31 Mean Corpuscular HGB Conc 34 g/dL N 31-36 Red Cell Distribution Width 13 % N 10.5-15 Platelet Count 436 10^3/uL N 150-450 Mean Platelet Volume 8.7 fL N 7.4-10.4 Abs Neutrophils 3.9 10^3/uL N 1.5-7.7 Abs Lymphocytes 5.8 10^3/uL High 1.0-4.8 Abs Monocytes 0.9 10^3/uL High 0-0.8 Abs Eosinophils 0.2 10^3/uL N 0-0.6 Abs Basophils 0.1 10^3/uL N 0-0.2 Abs Nucleated RBC 0 10^3/uL Granulocyte % 36.1 % Low 38-83 Lymphocyte % 53.2 % High 25-47 Monocyte % 8.5 % High 0-7 Eosinophil % 1.5 % N 0-6 Basophil % 0.7 % N 0-2 Nucleated Red Blood Cells % 0.1 Laboratory test finding 05/07/2018 [facility] [place] Estrad[place] <40 pg/mL 11 FSH (Follicle Stim Hormone) 26.7 mIU/mL 12 LH (Lutenizing Hormone) 24.3 mIU/mL 13 Pathologist Review (SEE NOTE) 14 Estradiol, Confirmatory, S <10 pg/mL 15 Chromogranin A 76 ng/mL <93 16 Serotonin 258 ng/mL Abnormal <=230 17 Laboratory test 04/28/2018 [facility] [place]strad[place], <10 pg/mL 18 finding Confirmatory, S CBC Auto Diff 04/28/2018 [facility] [place] Blood Count 15.5 10^3/uL High 3.5- 10.8 Red Blood Count 4.74 10^6/uL N 4.00-5.40 Hemoglobin 15.1 g/dL N 12.0-16.0 Hematocrit 45 % N 35-47 Mean Corpuscular Volume 95 fL N 80-97 Mean Corpuscular Hemoglobin 32 pg High 27-31 Mean Corpuscular HGB Conc 34 g/dL N 31-36 Red Cell Distribution Width 13 % N 10.5-15 Platelet Count 471 10^3/uL High 150-450 Mean Platelet Volume 8.2 fL N 7.4-10.4 Abs Neutrophils 7.1 10^3/uL N 1.5-7.7 Abs Lymphocytes 6.9 10^3/uL High 1.0-4.8 Abs Monocytes 1.2 10^3/uL High 0-0.8 Abs Eosinophils 0.1 10^3/uL N 0-0.6 Abs Basophils 0.1 10^3/uL N 0-0.2 Abs Nucleated RBC 0 10^3/uL Granulocyte % 45.8 % N 38-83 Lymphocyte % 44.7 % N 25-47 Monocyte % 7.9 % High 0-7 Eosinophil % 0.7 % N 0-6 Basophil % 0.9 % N 0-2 Nucleated Red Blood Cells % 0.1 Laboratory test finding 04/28/2018 [facility] [place]strad[place] <40 pg/mL 19 FSH (Follicle Stim Hormone) 21.9 mIU/mL 20 LH (Lutenizing Hormone) 27.4 mIU/mL 21 CBC Auto Diff 02/18/2018 [facility] [place] Blood Count 11.3 10^3/uL High 3.5- 10.8 Red Blood Count 4.32 10^6/uL N 4.00-5.40 Hemoglobin 14.4 g/dL N 12.0-16.0 Hematocrit 41 % N 35-47 Mean Corpuscular Volume 96 fL N 80-97 Mean Corpuscular Hemoglobin 33 pg High 27-31 Mean Corpuscular HGB Conc 35 g/dL N 31-36 Red Cell Distribution Width 14 % N 10.5-15 Platelet Count 410 10^3/uL N 150-450 Mean Platelet Volume 8.1 um3 N 7.4-10.4 Abs Neutrophils 4.7 10^3/uL N 1.5-7.7 Abs Lymphocytes 5.4 10^3/uL High 1.0-4.8 Abs Monocytes 0.9 10^3/uL High 0-0.8 Abs Eosinophils 0.2 10^3/uL N 0-0.6 Abs Basophils 0.1 10^3/uL N 0-0.2 Abs Nucleated RBC 0 10^3/uL Granulocyte % 41.5 % N 38-83 Lymphocyte % 47.9 % High 25-47 Monocyte % 8.2 % High 0-7 Eosinophil % 1.7 % N 0-6 Basophil % 0.7 % N 0-2 Nucleated Red Blood Cells % 0.1 Laboratory test 02/18/2018 [facility] [place] (SEE NOTE) 22 finding Review Wound 10/15/2017 [facility] [place]ound/Misc SEE RESULT 23, 24 Culture/Sensi Culture-Gram BELOW Stain CBC Manual 09/27/2017 [facility] WBC 9.93 4.0-10 Diff-Fma (607)- - .0 RBC 4.70 3.93-6.0 Hemoglobin (Fma/CMC/CTX) 14.7 g/dL 12.0-17.0 Hematocrit (Fma/CMC/CTX) 44 % 35.0-50.0 Mean Corpuscular Vol 93.6 fL 80-95 Mean Corpuscular Hemoglobin 31.3 pg 25.6-32.2 Mean Corpuscular Hemo Concen 33.5 g/dL 32.2-36.0 Platelets 482 10^3/ul High 163-400 RDW 12.9 11.6-13.7 Mean Platelet Volume 10.2 fL 9.4-12.4 Neutrophil 24 # Band 1 Lymphocytes 57 # Monocyte 6 Eosinophils 1 Atypical Lymph 11 # Z#Comment see result note Rapid Influenza A & B 08/19/2017 [facility] [place] Influenza A Molecular NEGATIVE Negative 25 Molecular Influenza B Molecular NEGATIVE Negative Comp Metabolic Panel 08/19/2017 [facility] [place] Sodium 137 mmol/L N 133-145 26 Potassium 3.6 mmol/L N 3.5-5.0 Chloride 106 mmol/L N 101-111 Co2 Carbon Dioxide 25 mmol/L N 22-32 Anion Gap 6 mmol/L N 2-11 Glucose 110 mg/dL High 70-100 Blood Urea Nitrogen 12 mg/dL N 6-24 Creatinine 0.59 mg/dL N 0.51-0.95 BUN/Creatinine Ratio 20.3 High 8-20 Calcium 9.8 mg/dL N 8.6-10.3 Total Protein 7.3 g/dL N 6.4-8.9 Albumin 4.3 g/dL N 3.2-5.2 Globulin 3.0 g/dL N 2-4 Albumin/Globulin Ratio 1.4 N 1-3 Total Bilirubin 0.40 mg/dL N 0.2-1.0 Alkaline Phosphatase 81 U/L N 34-104 Alt 42 U/L N 7-52 Ast 23 U/L N 13-39 Egfr Non- 107.9 >60 Egfr 138.8 >60 27 Laboratory test finding 08/19/2017 [facility] [place] Lipase 41 U/L N 11.0-82.0 CBC Auto Diff 08/19/2017 [facility] [place] Blood Count 10.7 10^3/uL N 3.5-10.8 Red Blood Count 4.58 10^6/uL N 4.0-5.4 Hemoglobin 14.3 g/dL N 12.0-16.0 Hematocrit 42 % N 35-47 Mean Corpuscular Volume 93 fL N 80-97 Mean Corpuscular Hemoglobin 31 pg N 27-31 Mean Corpuscular HGB Conc 34 g/dL N 31-36 Red Cell Distribution Width 15 % N 10.5-15 Platelet Count 406 10^3/uL N 150-450 Mean Platelet Volume 8 um3 N 7.4-10.4 Abs Neutrophils 3.9 10^3/uL N 1.5-7.7 Abs Lymphocytes 5.9 10^3/uL High 1.0-4.8 Abs Monocytes 0.8 10^3/uL N 0-0.8 Abs Eosinophils 0.1 10^3/uL N 0-0.6 Abs Basophils 0.1 10^3/uL N 0-0.2 Manual Differential 08/19/2017 [facility] [place] Immature Granulocytes 1 % N 0-9 Neutrophil % 33 % Low 38-83 Band % 1 % N 0-8 Lymphocytes % 49 % High 25-47 Monocytes % 5 % N 0-7 Eosinophils % 2 % N 0-6 Basophil % 1 % N 0-2 Reactive Lymph % 9 % High 0-6 Abs Neutrophils 3.5 10^3/uL N 1.5-7.7 Abs Lymphocytes 5.2 10^3/uL High 1.0-4.8 Abs Monocytes 0.5 10^3/uL N 0-0.8 Abs Eosinophils 0.2 10^3/uL N 0-0.6 Abs Basophils 0.1 10^3/uL N 0-0.2 RBC Morphology Normal Normal Laboratory test finding 08/19/2017 [facility] [place] Review (SEE NOTE) 28 Blood Culture SEE RESULT BELOW 29 Urinalysis Profile 08/19/2017 [facility] [place] Urine Color Yellow Urine Appearance Clear Urine Specific [place] 1.021 N 1.010-1.030 Urine pH 5.0 N 5-9 Urine Urobilinogen Negative Negative Urine Ketones Trace Abnormal Negative Urine Protein Negative Negative Urine Leukocytes Negative Negative Urine Blood Negative Negative Urine Nitrite Negative Negative Urine Bilirubin Negative Negative Urine Glucose Negative Negative Laboratory test 10/01/2016 [facility] Quickstrep negative Negative finding (607)- - Complete Blood 12/19/2014 [facility]ier[facility] Baird ([facility]) WBC 12.1 x10^3/UL High 3.6 -9.6 30 Count RBC 5.07 x10^6/UL 3.90-5.70 HGB 15.9 g/dL 12.1-17.2 HCT 48 % 36-50 MCV 94.0 fL 82.2-97.4 MCH 31.3 pg 27.6-33.3 MCHC 33.3 g/dL 33.0-35.5 RDW 13.8 % High 11.6-13.7 31 PLT 444 x10^3/UL High 150-400 32 MPV 7.7 fL 7.4-10.4 Gran # 6.3 x10^3/UL 1.5-7.2 Lymph# 5.3 x10^3/UL High 0.7-4.9 33 Bucks# 0.5 x10^3/UL 0.1-0.9 Gran % 51.5 % 42.2-75.2 Lymph % 44.0 % 20.5-51.1 Bucks% 4.5 % 1.7-9.3 Laboratory test finding 12/19/2014 Gutierrez Brie ([facility]) TSH 1.01 mIU/L 0.50-6.00 Uric Acid 5.8 mg/dL 2.5-9.2 Lipid Profile 12/19/2014 [facility] Brie ([facility]) Cholesterol 246 mg/dL High 120-200 Triglycerides 185 mg/dL 30-200 HDL Cholesterol 34 mg/dL 30-85 LDL (Calculated) 175 CALC High 0-129 VLDL Cholesterol 37 mg/dL 0-50 HDL Risk Factor 7.2 CALC High 0.0-4.4 Comprehensive Metabolic 12/19/2014 [facility]ierrez Brie ([facility]) Sodium 139 mEq/L 134-149 Prof Potassium 4.8 mEq/L 3.6-5.5 Chloride 104 mEq/L 94-112 Carbon Dioxide 27 mEq/L 21-32 Glucose 103 mg/dL 70-105 BUN 14 mg/dL 6-26 Creatinine 0.8 mg/dL 0.6-1.4 BUN/Creat Ratio 17.5 CALC 8.0-36.0 Calcium 10.0 mg/dL 8.6-10.2 Total Protein 6.7 g/dL 6.4-8.3 Albumin 4.3 g/dL 3.8-5.5 Globulin 2.4 g/dL 2.0-4.8 A/G Ratio 1.8 CALC 0.6-2.3 Alk. Phosphatase 73 U/L 30-110 Alt (SGPT) 27 U/L 7-35 Ast (Sgot) 16 U/L 5-34 Total Bilirubin 0.3 mg/dL 0.2-1.3 Laboratory test finding 12/19/2014 [facility] [place] Lyme Disease Serology Negative N Negative 34 C Reactive Protein 7.82 mg/L High < 5.00 35 Mariela (Antinuclear Antibodies) Negative N Negative 36 Rheumatoid Factor <15 IU/mL N <15 37 1 SEE RESULT BELOW Name: LUZ GONZALEZ : [address]: Tatum Roque MD Acct: [id number] Unit: [id number] AGE: 52 Location: ENDO Re07/22/18 SEX: F Status: DEP REF SPEC: [id number] ANNE MARIE: 07/22/1836 [facility] DR: Tatum Garay MD REQ: [id number] RECD: 07/22/181191 STATUS: HERB PRINGLE DR: Brice Limon MD [...] CONTINUED ON NEXT PAGE DEPARTMENT OF PATHOLOGY, [address] [place] [address] Jacoby Rebolledo M.D. Director JANE # [id number] RUN DATE: 08/03/18 [facility] LAB LIVE PAGE 2 Patient: LUZ GONZALEZ [id number] (Continued) POST-OPERATIVE DIAGNOSIS (Continued) POST-OPERATIVE DIAGNOSIS EGD: [...] 1224 END OF REPORT DEPARTMENT OF PATHOLOGY, [address] [place] [address] Jacoby Rebolledo M.D. Director [facility] # [id number] 2 FINAL DIAGNOSIS: Specimen Source: Bone marrow Flow cytometry immunophenotypic analysis: No immunophenotypic abnormality identified. Interpretative data: Blasts: 0% Lymphocytes: 77% of WBCs B-cells: 14% of lymphocytes with no evidence of light chain restriction or other immunophenotypic abnormality. T-cells/NK cells: No aberrant population detected. Markers tested: CD3, CD10, CD16, CD19, CD34, CD45, kappa surface light chains, lambda surface light chains, 7-AAD. Quality Assessment: Acceptable Viability: Acceptable Viable lymphocytes (7-AAD): 99% Specimen received within validated guidelines. A Edwards-Giemsa stained slide prepared from the flow cytometry specimen was examined for quality purposes. Electronically signed by: Jacoby Rebolledo MD 06/06/18 1257 Technical component performed by: [place] [address] Dietitian Consultant: Rashid Skinner II, MD, PhD. 3 RESULT: Lymphocytosis (symptomatic) (D72.820) 4 Locus and probes [Strategy;#Nuclei;Class] 6CEN(D6Z1),6q23.3(MYB) [COPY#;200;LDT] 11CEN(D11Z1),11q22.3(MELLISSA) [COPY#;200;ASR] 12CEN(D12Z3),12q15(MDM2) [COPY#;200;ASR] 13q14.3(I11X573),13q34(LAMP1) [COPY#;200;ASR] 11q13(CCND1-XT),14q32(IGH-XT) [DFISH;500;ASR] 17p13.1(TP53),17CEN(D17Z1) [COPY#;200;ASR] Probe strategies include: DFISH=dual color, double fusion; COPY#=region gain and loss. 5 Abnormality Name Result Abn Cutoff (%) (%) -6q23(D6Z1x2,MYBx1) Normal <4.0 -11q22.3(R73X1r1,ATMx1) Normal <7.5 +12(D12Z3,MDM2)x3 Normal <2.5 -13q14.3(P65S030c0,RVDW1p2) Normal <7.0 -13q14.3x2(J10I631y0,SWPX3g7) Normal <1.5 t(11;14) CCND1-XT/IGH-XT fusion Normal <0.6 -17p13.1(TP53x1,U81I6u7) Normal <9.5 -17(TP53,D17Z1)x1 Normal <5.5 6 RESULT: Interphase FISH is normal for all loci studied. 7 The result is within normal limits for the CLL FISH panel and the CCND1 and IGH gene regions. 8 Applicable to Analyte Specific Reagent (ASR) and Laboratory Developed Tests (LDT). This test was developed and its performance characteristics determined by [facility] in a manner consistent with CLIA requirements. It has not been cleared or approved by the U.S. Food and Drug Administration. This FISH test does not rule out other chromosome abnormalities. 9 RESULT: Manny Cruz M.D., Ph.D. Test Performed by: [facility] - [address] [address] 10 Leukocytosis with absolute lymphocytosis and mild monocytosis. Lymphoproliferative disorder copy excluded. Additional studies as clinically warranted. Reviewed by Dr. Rebolledo 11 Estradiols <40 pg/mL are sent to a reference lab for low range testing. Postmenopausal Females < 20 Ovulating females: by day in cycle relative to LH Peak Follicular phase - 12 10-50 - 4 60-200 Mid-cycle - 1 120-375 Luteal phase + 2 50-155 + 6 60-260 + 12 15-115 12 Normally menstruating females - Follicular phase 3 - 9 - Mid-cycle peak 4 - 23 - Luteal phase 1 - 6 Postmenopausal females 16 - 114 13 Normally menstruating females - Follicular Phase 1 - 18 - Mid-Cycle Peak 24 - 105 - Luteal Phase 0.6 - 20 Postmenopausal females 15 - 62 14 Persistent mild absolute lymphocytosis noted. Clinical follow-up and/or additional studies is warranted. Reviewed at Dr. Rebolledo 15 REFERENCE VALUE Premenopausal: 15-350 (E2 levels vary widely through the menstrual cycle.) Postmenopausal: <10 ADDITIONAL INFORMATION This test was developed and its performance characteristics determined by [facility] in a manner consistent with CLIA requirements. This test has not been cleared or approved by the U.S. Food and Drug Administration. Test Performed by: [facility] - [address] [address] 16 A reagent change was implemented on date 10/20/2017. Measured chromogranin A concentrations were on average 7% higher using the new reagent formulation. However, for individual specimens the variation may exceed 7%. Upon request, samples previously submitted within the last six months can be retested using the new reagent formulation. ADDITIONAL INFORMATION This test was developed and its performance characteristics determined by [facility] in a manner consistent with CLIA requirements. This test has not been cleared or approved by the U.S. Food and Drug Administration. The testing method is a homogeneous time-resolved immunofluorescent assay. Values obtained with different assay methods or kits may be different and cannot be used interchangeably. Test results cannot be interpreted as absolute evidence for the presence or absence of malignant disease. Test Performed by: [facility] - [address] [address] 17 ADDITIONAL INFORMATION This test was developed and its performance characteristics determined by [facility] in a manner consistent with CLIA requirements. This test has not been cleared or approved by the U.S. Food and Drug Administration. Test Performed by: [facility] - [address] [address] 18 REFERENCE VALUE Premenopausal: 15-350 (E2 levels vary widely through the menstrual cycle.) Postmenopausal: <10 ADDITIONAL INFORMATION This test was developed and its performance characteristics determined by [facility] in a manner consistent with CLIA requirements. This test has not been cleared or approved by the U.S. Food and Drug Administration. Test Performed by: [facility] - [address] [address] 19 Estradiols <40 pg/mL are sent to a reference lab for low range testing. Postmenopausal Females < 20 Ovulating females: by day in cycle relative to LH Peak Follicular phase - 12 10-50 - 4 60-200 Mid-cycle - 1 120-375 Luteal phase + 2 50-155 + 6 60-260 + 12 15-115 20 Normally menstruating females - Follicular phase 3 - 9 - Mid-cycle peak 4 - 23 - Luteal phase 1 - 6 Postmenopausal females 16 - 114 21 Normally menstruating females - Follicular Phase 1 - 18 - Mid-Cycle Peak 24 - 105 - Luteal Phase 0.6 - 20 Postmenopausal females 15 - 62 22 Leukocytosis with Persistent mild absolute lymphocytosis. Additional studies as clinically warranted. Reviewed by Dr. Rebolledo 23 [id number] SEE RESULT BELOW Name: LUZ GONZALEZ : [address]: Avinash Limon MD Acct: [id number] Unit: [id number] AGE: 51 Location: [facility] Re10/15/17 SEX: F Status: REG REF SPEC: [id number] ANNE MARIE: 10/15/17-12[address] [facility] DR: Avinash Limon MD REQ: [id number] RECD: 10/15/17 STATUS: RAZIA PRINGLE DR: Brice Limon MD _ SOURCE: ABDOMEN SPDESC: ORDERED: Culture Stain COMMENTS: [id number] Procedure Result Reported Site Wound/Misc Gram Stain [...] . END OF REPORT DEPARTMENT OF PATHOLOGY, [address] [place] [address] Jacoby Rebolledo M.D. Director [facility] # [id number] 25 Battery Wrecker Operator: [id number] Variant LY 27 Because ethnic data is not always readily [...] 15-29 5 Kidney failure <15 (or dialysis) 28 Mild absolute lymphocytosis. If persistent, recommend correlation with flow cytometry to exclude a low-grade lymphoproliferative disorder. Reviewed by Callie Levy MD 29 SEE RESULT BELOW Name: LUZ GONZALEZ : [address]: Regulo Jacques MD Acct: [id number] Unit: [id number] AGE: 51 Location: ED Re08/19/17 SEX: F Status: DEP ER SPEC: [id number] ANNE MARIE: 08/19/17-[address] [facility] [address]: Regulo Jacques MD REQ: [id number] RECD: 08/19/17 STATUS: RAZIA PRINGLE DR: Brice Limon MD _ SOURCE: BLOOD,VENO SPDESC: ORDERED: Blood Cult Procedure Result Reported Site Aerobic Culture Bottle Final 08/24/17- 2038 ML No Growth Day 5 Anaerobic Culture Bottle Final 08/24/172038 ML No Growth Day 5 * - Main Lab . END OF REPORT DEPARTMENT OF PATHOLOGY, [address] [place] [address] Jacoby Rebolledo M.D. Director [facility] # [id number] 30 RESULTS VERIFIED BY REPEAT ANALYSIS 31 RESULTS VERIFIED BY REPEAT ANALYSIS 32 RESULTS VERIFIED BY REPEAT ANALYSIS 33 RESULTS VERIFIED BY REPEAT ANALYSIS 34 Serologic response to B. burgdorferi infection is not detected, but cannot rule out early infection during which low or undetectable antibody levels to B. burgdorferi may be present. If clinically indicated, a new serum specimen should be submitted in 7-14 days. Test Performed by: [address] [address] Dietitian Consultant: Rashid Skinner II, M.D., Ph.D. 35 Acute inflammation: >10.00 36 FASTING 3 SSTS REFRIGERATED 37 Test Performed by: [address] [address] Dietitian Consultant: Rashid Skinner II, M.D., Ph.D. Procedures Date Code Description Status 07/22/2018 [id number] Colonoscopy Completed 04/29/2018 [id number] Mammogram Completed 05/14/2016 [id number] Mammogram Completed 12/26/2014 [id number] Mammogram Completed 09/25/2014 88006 Pulse Oximetry Completed 08/31/2014 92913 Nebulizer Treatment Completed Encounters Type Date Location Provider Dx Diagnosis Office Visit 04/20/2018 [facility] Office Brice Limon, S00.83xA Contusion of 2:30p M.D. other part of head, initial encounter Z12.39 Encounter for oth screening for malignant neoplasm of breast Z12.11 Encounter for screening for malignant neoplasm of colon R61 Generalized hyperhidrosis M25.50 Pain in unspecified joint Office Visit 10/13/2017 1:40p [facility] Brice Price T79.2xxD Traumatic Jacquie Limon secondary and recurrent hemor and seroma, subs Office Visit 09/27/2017 3:30p [facility] Brice Price K42.9 Umbilical hernia Jacquie Limon without obstruction or gangrene R13.10 Dysphagia, unspecified D72.9 Disorder of white blood cells, unspecified Z12.11 Encounter for screening for malignant neoplasm of colon Z12.39 Encounter for oth screening for malignant neoplasm of breast Office Visit 07/26/2017 12:00p Main Office Skylar Montemayor Z00.00 Encntr for BLAKE Aranda general adult medical exam w/o abnormal findings Z12.31 Encntr screen mammogram for malignant neoplasm of breast Z12.11 Encounter for screening for malignant neoplasm of colon Z13.1 Encounter for screening for diabetes mellitus Z13.220 Encounter for screening for lipoid disorders F90.0 Attn-defct hyperactivity disorder, predom inattentive type J45.909 Unspecified asthma, uncomplicated R05 Cough J16.8 Pneumonia due to other specified infectious organisms F17.210 Nicotine dependence, cigarettes, uncomplicated Z71.6 Tobacco abuse counseling Office Visit 11/20/2016 1:20p [facility] Judy Matamoros M79.672 Pain in left foot M.D. Office Visit 10/01/2016 3:00p [facility] Caryn Ferro J02.9 Acute pharyngitisEric M.D. unspecified Office Visit 09/18/2016 3:00p [facility] Office Brice Price Z11.1 Encounter for Jacquie Limon screening for respiratory tuberculosis Office Visit 04/23/2016 3:00p [facility] Office Brice Price E27.8 Other specified Jacquie Limon disorders of adrenal gland J45.998 Other asthma Z12.39 Encounter for oth screening for malignant neoplasm of breast F90.0 Attn-defct hyperactivity disorder, predom inattentive type Office Visit 02/20/2016 5:50p Main Office Brice Limon E27.8 Other specified M.DJohn disorders of adrenal gland Office Visit 04/26/2015 11:15a Main Office Jarret Crowder M.D. Z11.1 Encounter for screening for respiratory tuberculosis Office Visit 12/06/2014 1:40p Main Office Jarret Crowder M.D. V70.0 Examination General Medical Routine AT [facility] 719.49 Pain Joint Multiple Sites 611.72 Lump Or Mass Breast 300.00 Anxiety State Unspec Office Visit 09/25/2014 1:45p Main Office Agus Fried 786.2 Cough 493.90 Asthma Unspec W/O Status Asthmaticus Office Visit 09/17/2014 12:45p Main Office Hannah Malcolm NP 493.90 Asthma Unspec W/O Status Asthmaticus Office Visit 08/31/2014 2:45p Main Office Evette Ruvalcaba, 465.8 Upper Respiratory [employer] Infections Acute Other Multiple Sites Office Visit 03/13/2014 9:00a Main Office Kim 719.43 Pain Joint Forearm Agus Faye Plan of Treatment 08/05/2018 - Natalie Shelley NPK12.1 Other forms of stomatitisComments:We recommend you go to [facility] ED for further evaluation, pain control, and possibly oral surgery consultation.F90.2 Attention-deficit hyperactivity disorder, combined typeComments:I would make no medication changes at this time.AllComments:1. Patient has been queried about patient's goals/preferences and functional/lifestyle goals at relevant visits. If relevant, describe: Has been discussed, noted above2. Treatment goals as explainedto the patient: see above3. Are there barriers to meeting treatment goals? Yes If Yes, please describe: Barriers include possible insurance limits, disease process, and difficulty with lifestyle changes4. Self-Management goals as described to the patient: Yes, see above As always, we strongly encourage a healthy diet and making physical activity a part of your every day life. If you have questions about how or where to start, please contact the office.
[2018-08-07 14:19] VITALS: BP 131/88
--- NOTE | 2018-08-07 15:23 | UC ---
Throat Pain/Nasal Felix HPI - HPI Summary HPI Summary: Pt had an endoscopy done which left her with a residual sore throat. She also had some dental work done. She finished a course of antibiotics and has had oral mouth burning since finishing the antibiotic. She used a toothbrush to "clean" her oral mucosa and actually caused what appears to be an aphthous ulcer to the roof of her mouth. She thinks she may have thrush. - History of Current Complaint Chief Complaint: UCDentalProblem Stated Complaint: MOUTH PAIN Time Seen by Provider: 08/07/18 14:07 Hx Obtained From: Patient Hx Last Menstrual Period: feb 12 ?: No Onset/Duration: Gradual Onset Severity: Moderate Pain Intensity: 0 Pain Scale Used: 0-10 Numeric - Allergies/Home Medications Allergies/Adverse Reactions: Allergies Allergy/AdvReac Type Severity Reaction Status Date / Time Penicillins Allergy Severe Hives,heart Verified 08/07/18 14:20 racing hydromorphone [From Dilaudid] AdvReac Severe Headache Verified 08/07/18 14:20 hydrocodone AdvReac Intermediate Itching, Verified 08/07/18 14:21 nausea fentanyl AdvReac Nausea And Verified 08/07/18 14:21 Vomiting midazolam [From Versed] AdvReac Nausea And Verified 08/07/18 14:21 Vomiting Home Medications: Home Medications Ibuprofen TAB* [Motrin TAB* 600 MG] 600 mg PO Q6H PRN 08/07/18 [History Confirmed 08/07/18] Moxifloxacin TAB(NF) [Avelox TAB (NF)] 400 mg PO DAILY 08/07/18 [History Confirmed 08/07/18] Ondansetron ODT TAB* [Zofran 4 MG Odt TAB*] 4 mg PO Q6H PRN 08/07/18 [History Confirmed 08/07/18] PMH/Surg Hx/FS Hx/Imm Hx Previously Healthy: No - She states she is alos being worked up for possible leukemia - Surgical History Surgical History: Yes Surgery Procedure, Year, and Place: incarcerated umbilical hernia repair 08/2015 [facility] [place]. appendectomy 2015 [facility] [place] (2 weeks after hernai repair). cholecystectomy 1986 - [place]. right breast lumpectomy 1999 [place]. ears tubes and tonsillectomy as a child - [facility] [place]. colposcopy 1986 [place]. umbilical hernia . right hand - 07/2018 - Family History Known Family History: Positive: Hypertension - Mother, grandfather - Social History Alcohol Use: None Substance Use Type: None Smoking Status (MU): Heavy Every Day Tobacco Smoker Type: Cigarettes Amount Used/How Often: 1/2 ppd for 30 years off and on Have You Smoked in the Last Year: Yes - Immunization History Most Recent Influenza Vaccination: 2014 Most Recent Tetanus Shot: unknown Most Recent Pneumonia Vaccination: never Review of Systems All Other Systems Reviewed And Are Negative: Yes Constitutional: Positive: Negative Skin: Positive: Negative Eyes: Positive: Negative ENT: Positive: Sore Throat, Other - Sore throat since she had an endoscopy, also burning oral mucosa since she finished antibiotics. She took a toothbrush and brushed her oral mucosa to "get it clean" and caused an ulceration to roof of mouth. Respiratory: Positive: Negative Cardiovascular: Positive: Negative Gastrointestinal: Positive: Negative Genitourinary: Positive: Negative Motor: Positive: Other - Pt had recent right hand surgery which is healing well , but she does have an BETO wrap on her right hand/forearm. Neurovascular: Positive: Negative Musculoskeletal: Positive: Negative Neurological: Positive: Negative Psychological: Positive: Negative Is Patient Immunocompromised?: No - Pt states she is being worked up for leukemia but has no definite diagnosis Physical Exam Triage Information Reviewed: Yes Appearance: Well-Appearing, No Pain Distress, Well-Nourished Vital Signs: Initial Vital Signs Temp 97.3 F 08/07/18 14:10 Pulse 73 08/07/18 14:10 Resp 16 08/07/18 14:10 BP 131/88 08/07/18 14:10 Pulse Ox 100 08/07/18 14:10 Vital Signs Reviewed: Yes ENT: Positive: Pharyngeal erythema - Mild erythema posterior pharynx. Pt has a large aphthous ulcer on roof of mouth approximately 1.0 cm X 1.0 CM. Dental Exam: Other - Three teeth which are down to the gumline (for which she is having dental work done tomorrow) Neck exam: Normal Neck: Positive: Supple Respiratory Exam: Normal Cardiovascular Exam: Normal Musculoskeletal: Positive: Strength Limited @, ROM Limited @ - Right hand and forearm are in an BETO wrap due to recent surgery and area is healing. She gets the splint/cast off in one week Skin Exam: Normal Skin: Positive: Other - See ENT exam notes Throat Pain/Nasal Course/Dx - Course Course Of Treatment: Pt's main complaint is the burning feeling of her oral mucosa since completing antibiotics. She has a dental appointment tomorrow. Because of her symptoms, I will treat with Clotrimazole monique 5 times a day for 10 days. She is to follow up in 2-3 days with her primary care provider if no improvement. - Differential Dx/Diagnosis Provider Diagnosis: Oral candidiasis Discharge - Sign-Out/Discharge Documenting (check all that apply): Patient Departure All imaging exams completed and their final reports reviewed: No Studies - Discharge Plan Condition: Good Disposition: HOME Prescriptions: Nystatin SUSPENSION* 100,000 unit PO QID 10 Days #250 ml Patient Education Materials: Oral Candidiasis (ED) Referrals: Brice Limon MD [Primary Care Provider] - Additional Instructions: Definite follow up with your primary care provider if no improvement in 3-4 days. - Billing Disposition and Condition Condition: GOOD Disposition: Home - Attestation Statements Provider Attestation: I was available for consult. This patient was seen by the [facility]. The patient was not presented to , seen by or examined by sc -Kyle Henderson MD
== END 2018-08-07 15:01 | disposition home or self-care (01) ==
LOC: UCEAST 13:15
DX: B37.0 Candidal stomatitis (principal); F17.210 Nicotine dependence, cigarettes, uncomplicated; Z88.4 Allergy status to anesthetic agent; Z88.0 Allergy status to penicillin; Z88.5 Allergy status to narcotic agent
CPT/HCPCS: 99212; G0463